=== PATIENT | female | born 1950 | race Two or more races ===

== ENCOUNTER 2018-04-30 18:56 | Inpatient (IN) | payer OTHER ==
--- NOTE | 2018-04-30 19:18 | PDOC ---
Rapid Medical Evaluation Time Seen by Provider: 04/30/18 19:13 Medical Evaluation: I have performed a brief in-person evaluation of this patient. The patient presents with a chief complaint of: neck pain since this morning. cannot turn neck without pain. patient had a fever last week but it resolved 5 days ago. Patient was sent here from [facility] for possible meningitis Pertinent physical exam findings: TTP of b/l cervical paravertebral muscles. I have ordered the following: labs The patient will proceed to the ED for further evaluation. Discharge Disposition - Diagnosis Neck pain - Referrals - Patient Instructions - Post Discharge Activity
--- NOTE | 2018-04-30 20:15 | PDOC ---
History of Present Illness - General Chief Complaint: Pain Stated Complaint: NECK PAIN Time Seen by Provider: 04/30/18 19:13 History Source: Patient Exam Limitations: No Limitations - History of Present Illness Initial Comments: 04/30/18 20:10 Pt is a 67yo f with no significant PMH sent to ED from [facility] for neck pain. Pt said the neck pain started last night and got worse throughout the day today. She is unable to move her neck without pain. Pt states that last week she was sick with "strep throat" which was worse than her previous sore throat illnesses and had a temperature of 103.2. She did not go to her doctor. She waited out the fever and was better 4 days ago on Sunday. Pt had "cold sores " erupt but they are gone now. She has not gotten flu shots and thinks she is up to date on vaccinations. Neck pain is localized to the back of the neck and radiates laterally. Not associated with headaches, photophobia, changes in vision, chest pain, sob, cough, ear pain, throat pain, congestion, abdominal pain, n/v/d, urinary symptoms. PCP: Gwendolyn PMH: none PSH: gastric bypass 2006 Meds: none Allergies: sulfa Social: denies Past History - Past Medical History Allergies/Adverse Reactions: Allergies Allergy/AdvReac Type Severity Reaction Status Date / Time Sulfa (Sulfonamide Allergy Severe Hives Verified 04/30/18 19:19 Antibiotics) Home Medications: Ambulatory Orders NK [No Known Home Medication] 04/30/18 COPD: No Other medical history: Pt denies - Suicide/Smoking/Psychosocial Hx Smoking History: Never smoked Have you smoked in the past 12 months: No Information on smoking cessation initiated: No Hx Alcohol Use: No Drug/Substance Use Hx: No Substance Use Type: None Review of Systems - Review of Systems Able to Perform ROS?: Yes Comments:: 05/01/18 00:04 ROS: Constitutional: Fevers. No chills, fatigue, malaise, weight change, night sweats HEENT: Neck pain and stiffness. No Headache Rhinorrhea, nasal congestion, visual changes, earache, sore throat Cardiovascular: No chest pain, syncope, palpitations, lightheadedness Respiratory: No Cough, SOB, Hemoptysis Gastrointestinal: No Abdominal pain, Nausea, Vomiting, Constipation, Diarrhea, blood in stool Genitourinary: No Dysuria, Frequency, Hematuria Musculoskeletal: Neck pain. No Myalgia, other arthralgias Skin: No rashes Neurologic: No Headache, Dizziness, Numbness, Weakness, or Tingling *Physical Exam - Vital Signs Last Vital Signs Temp Pulse Resp BP Pulse Ox 99.9 F H 85 20 192/88 H 100 04/30/18 19:19 04/30/18 19:19 04/30/18 19:19 04/30/18 19:19 04/30/18 19:19 - Physical Exam Comments: 05/01/18 00:08 Physical Exam: Pt sitting in bed with mask, not moving head. General Appearance: Nourished. No Apparent Distress HEENT: Atraumatic, normocephalic, EOMI, VASILE, Normal Tympanic Membranes. No Conjunctival Injection, Scleral Icterus, Pharyngeal Erythema, Tonsillar Exudate, Tonsillar Erythema. Neck: Tender to palpation along cervical spinous processes and paravertebral tenderness. No Cervical Lymphadenopathy, No tracheal deviation, Thyroid gland normal. Respiratory/Chest: Lungs Clear, Normal Breath Sounds. No Crackles, Rales, Rhonchi, Wheezing Cardiovascular: Regular Rhythm, Regular Rate, Peripheral pulses palpable bilaterally. No JVD, Murmur, Gallops, Rubs, Carotid Bruit, Edema Gastrointestinal/Abdominal: Normal Bowel Sounds, Soft. No Guarding, Rebound, Tenderness Musculoskeletal: Unable to rotate, flex or extend neck. No CVA Tenderness, No joint swelling Extremity: Normal Capillary Refill Integumentary: Normal Color, Dry, Warm. No rashes, lesions Neurologic: fringe knotter II-XII NML intact, Fully Oriented, Alert, Normal Mood/Affect, Normal Response, Motor Strength 5/5, Full sensation, 2+ Reflexes Procedures - Lumbar Puncture Indication: Meningitis CT Scan: No Betadine Prep: No Position: Right lateral decubitus Site: L4-L51 Volume(ml): 5 Lumbar Puncture Kit: Adult Opening Pressure(mmHg): 15 Traumatic Tap: No Tubes Obtained: 4 Clear Fluid: Yes Complications: Headache ED Treatment Course - LABORATORY CBC & Chemistry Diagram: 04/30/18 20:26 04/30/18 20:26 Medical Decision Making - Medical Decision Making 05/01/18 00:11 67yo F with no significant PMH BIBA from [facility] for neck stiffness. Pt had a fever last week that lasted for about 3-4 days with sore throat and cold sores. She is febrile today and has neck stiffness. No headache , photophobia. Negative Brudzinsky and Kernig's. No recent trauma. Vitals: 99 when presenting, 101.2 rectally. hypertensive, normocardic, saturating well on RA. PE: posterior neck tenderness and stiffness, pt unable to move neck DDx: meningitis, epidural abscess, influenza, Partial sepsis workup ordered, EKG, CXR. Will do LP and start pt on abx. Will give Tylenol for fever and pain. CT cspine and tspine ordered. Flu swab ordered Pt consented to LP. LP performed by me with supervision of Dr. Sorto and Dr. Read. No complications during procedure, CSF clear, pt did not complain of pain or neurological complaints. Pt complained of headache after procedure. Pt was started on Vancomycin, Ampicillin and Ceftriaxone and given dexamethasone prior to administration of abx. Pt also given ivf and Tylenol. Pt reported feeling better after tylenol. CXR: no focal densities, no acute pathology Labs: WBC 11.8, electrolytes wnl. UA negative CSF: 1 WBC, 1RBC in tube 1, 8 RBC in tube 4, 50 protein, 53 glucose. Flu swab negative. CSF, blood and urine cultures pending. 05/01/18 00:51 CT head: The ventricular system is midline and nondilated. The sulcal pattern is normal for the patient's age. There is no bleed, mass, extra-axial fluid collection or mass effect. No skull fracture or skull lesion is identified. The visualized paranasal sinuses and mastoid air cells are clear. 05/01/18 01:16 CT spine results pending. Pt will be admitted for poss. meningitis *DC/Admit/Observation/Transfer Diagnosis at time of Disposition: Neck pain - Discharge Dispostion Condition at time of disposition: Stable Decision to Admit order: Yes - Referrals - Patient Instructions - Post Discharge Activity
[2018-04-30 20:44] LABS: VENOUS PC02 39.4 mmHg (38-52); VENOUS PH 7.43 (7.32-7.42); VENOUS PO2 37.2 mmHg (28-48)
--- NOTE | 2018-04-30 21:06 | PDOC ---
Attending Attestation - Resident Resident Name: Julisa Finch - ED Attending Attestation I have performed the following: I have examined & evaluated the patient, The case was reviewed & discussed with the resident, I agree w/resident's findings & plan, Exceptions are as noted - HPI HPI: 04/30/18 23:02 Patient is a 67 y/o F with no past medical history who presents to the emergency department for evaluation of neck pain. Patient was advised to visit the emergency department for further evaluation after being seen at [facility] for neck pain. Pt reports neck stiffness and pain with flexion and extension of her neck. She reports a Tmax of 103.2 last week with an associated sore throat that has resolved over the last few days, but began having fevers again today. She also reports photophobia. The patient denies nausea, chest pain, back pain, headache, urinary symptoms, weakness, or focal deficits - Physicial Exam PE: 04/30/18 23:05 GENERAL: Awake, alert, and fully oriented, in no acute distress HEAD: No signs of trauma EYES: PERRLA, EOMI, sclera anicteric, conjunctiva clear ENT: Auricles normal inspection, hearing grossly normal, nares patent, oropharynx clear without exudates. Moist mucosa NECK: +pain with flexion of the neck. +midline cervical ttp LUNGS: Breath sounds equal, clear to auscultation bilaterally. No wheezes, and no crackles HEART: Regular rate and rhythm, normal S1 and S2, no murmurs, rubs or gallops ABDOMEN: Soft, nontender, normoactive bowel sounds. No guarding, no rebound. No masses EXTREMITIES: Normal range of motion, no edema. No clubbing or cyanosis. No cords , erythema, or tenderness BACK: No midline spinal tenderness in thoracic/lumbar region NEUROLOGICAL: Normal speech, cranial nerves intact, negative pronator drift, 5/ 5 strength in all 4 extremities, normal sensation to light touch in all 4 extremities, normal cerebellar exam, normal gait, normal reflexes and tone SKIN: Warm, Dry, normal turgor, no rashes or lesions noted. - Medical Decision Making 04/30/18 23:06 67yo F presents to the ED with neck pain and fever. Vitals with fever and elevated BP. Story c/f meningitis vs epidural abscess vs viral syndrome. LP done and pending. WIll do sepsis workup, cover pt for meningitis and admit. 05/01/18 00:50 CTH neg, CT cervical and thoracic spine pending to eval for epidural abscess. If neg, pt will need MRI for further eval. Case signed out to admitting hosp. Case discussed in detail with admitting physician including history, physical exam and ancillary studies. Admitting physician has assumed care for the patient, will follow all pending diagnostics and will complete the evaluation and treatment. Heart Score/ECG Review #1 05/01/18 00:22 Twelve-lead EKG was performed and reviewed by me. Normal sinus rhythm, rate 79. Normal axis and intervals. No ST elevations or T-wave inversions.
[2018-04-30 21:13] LABS: BASO % 0.5 % (0-2.0); EOS % 0.4 % (0-4.5); HEMATOCRIT 36.4 % (32.4-45.2); HEMOGLOBIN 11.4 GM/dL (10.7-15.3); LYMPH % 12.9 % (8-40); MCHC 31.4 g/dl (32.0-36.0); MEAN CELL VOLUME 76.4 fl (80-96); MEAN PLT VOLUME 8.1 fl (7.5-11.1); MONO % 6.6 % (3.8-10.2); NEUT % 79.6 % (42.8-82.8); PLATELET COUNT 443 K/MM3 (134-434); RBC 4.76 M/mm3 (3.60-5.2); RDW 18.4 % (11.6-15.6); WHITE BLOOD COUNT 11.8 K/mm3 (4.0-10.0)
[2018-04-30 21:17] LABS: URINE APPEARANCE SLCLOUDY; URINE BILIRUBIN NEGATIVE (<2.0 mg/dL); URINE COLOR YELLOW; URINE GLUCOSE (UA) NEGATIVE (NEGATIVE); URINE KETONE 2+ (NEGATIVE); URINE LEUK ESTERASE TRACE (NEGATIVE); URINE NITRITE NEGATIVE (NEGATIVE); URINE PROTEIN NEGATIVE (NEGATIVE)
[2018-04-30 21:28] LABS: EPI CELLS RARE /HPF (FEW); URINE HYALINE CAST 1 /lpf
[2018-04-30 21:31] LABS: INR 1.14 (0.83-1.09); PROTHROMBIN TIME (PATIENT) 13.5 SEC (9.7-13.0)
[2018-04-30 21:34] LABS: ACTIVATED PTT 27.6 SECONDS (25.2-36.5)
[2018-04-30 21:36] LABS: ALBUMIN 3.6 g/dl (3.4-5.0); ALK PHOS 60 U/L (45-117); ANION GAP 8 MMOL/L (8-16); BILIRUBIN,TOTAL 0.3 mg/dL (0.2-1); BLOOD UREA NITROGEN 13 mg/dL (7-18); CALCIUM 8.7 mg/dL (8.5-10.1); CHLORIDE 104 mmol/L (98-107); CO2 25 mmol/L (21-32); CREATININE 0.8 mg/dL (0.55-1.3); GLUCOSE,RANDOM 89 mg/dL (74-106); POTASSIUM 3.9 mmol/L (3.5-5.1); SGOT/AST 20 U/L (15-37); SGPT/ALT 19 U/L (13-61); SODIUM 137 mmol/L (136-145); TOT PROT 7.6 g/dl (6.4-8.2)
[2018-04-30] MEDS ORDERED: ACETAMINOPHEN 1000 MG/100 ML VIAL (NON FORMULARY) IVPB ONE (22:21)
[2018-04-30] MEDS ORDERED: SODIUM CHLORIDE 1,000 ML IV STA (22:22)
[2018-04-30] MEDS ORDERED: ACETAMINOPHEN INJECTION 100 ML IVPB ONE (22:38)
[2018-04-30 22:42] LABS: GLUCOSE,CSF 53 mg/dL (40-70)
[2018-04-30] MEDS ORDERED: CEFTRIAXONE 2,000 MG in DEXTROSE 5%-WATER - 50 ML IVPB ONE (23:02)
[2018-04-30] MEDS ORDERED: AMPICILLIN SODIUM 250 MG VIAL IVPUSH ONE (23:02)
[2018-04-30] MEDS ORDERED: DEXAMETHASONE SOD PHOSPHATE 20 MG/5 ML VIAL IVPB ONE (23:02)
[2018-04-30] MEDS ORDERED: VANCOMYCIN 500 MG in DEXTROSE 5%-WATER - 100 ML IVPB ONE (23:07)
[2018-04-30 23:09] LABS: CSF APPEARANCE CLEAR; CSF COLOR COLORLESS; CSF WBC 1
[2018-04-30 23:12] LABS: CSF APPEARANCE CLEAR; CSF COLOR COLORLESS; CSF WBC 1
[2018-04-30] MEDS ORDERED: VANCOMYCIN 1,000 MG in DEXTROSE 5%-WATER - 100 ML IVPB ONE (23:18)
[2018-04-30] MEDS ORDERED: CEFTRIAXONE 2 GM/100 ML BAG IVPB ONE (23:23)
[2018-04-30] MEDS ORDERED: VANCOMYCIN 1 GRAM (PRE-DOCKED) 1,000 MG/250 ML BAG IVPB ONE (23:23)
[2018-04-30] MEDS ORDERED: AMPICILLIN SODIUM 2 GM VIAL ONE (23:23)
[2018-04-30] MEDS ORDERED: DEXAMETHASONE SOD PHOSPHATE 10 MG/1 ML VIAL ONE (23:23)
--- NOTE | 2018-05-01 02:28 | PN ---
Teaching Attending Note Name of Resident: Kamilla Queen ATTENDING PHYSICIAN STATEMENT I saw and evaluated the patient. I reviewed the resident's note and discussed the case with the resident. I agree with the resident's findings and plan as documented. SUBJECTIVE: Patient is a 67 year old woman with history of Migraines and Gastric bypass ( 2006) sent to the ER from [facility] for neck pain. The neck pain started last night and got worse throughout the day today. She is unable to move her neck without pain. Last week she was sick with "strep throat" which was worse than her previous sore throat illnesses and she had a temperature of 103.2. She did not go to her doctor. She waited out the fever and was better 4 days ago on Sunday. She had "cold sores" eruptions but they are gone now. She has not gotten flu shots and thinks she is up to date on vaccinations. Neck pain is localized to the back of the neck and radiates laterally. Not associated with headaches, photophobia, changes in vision, chest pain, sob, cough, ear pain, throat pain, congestion, abdominal pain, nausea or vomiting. OBJECTIVE: Alert Vital Signs Period Temp Pulse Resp BP Sys/Marquez Pulse Ox Last 24 Hr 98.9 F-101.2 F 77-85 18-20 165-192/88-93 99-100 HEENT: No Jaundice, eye redness or discharge, PERRLA, EOMI. Normocephalic, atraumatic. Poor dentition. External ears are normal and hearing is grossly intact. No nasal discharge. Neck: Supple, paravertebral tenderness. No palpable adenopathy or thyromegaly. No JVD Chest: Good effort. Clear to auscultation and percussion. Heart: Regular. No S3, rub or murmur Abdomen: Not distended, soft, nontender and no HSM. No rebound or guarding. Normoactive bowel sounds. Ext: Peripheral pulses intact. No leg edema. Skin: Warm and dry. No petechiae, rash or ecchymosis. Neuro: Alert. Oriented x3. CN 2-12 grossly intact. Sensation grossly intact in all four extremities and DTR are symmetric. Home Medications Medication Instructions Recorded NK [No Known Home Medication] 04/30/18 Abnormal Lab Results 04/30/18 04/30/18 04/30/18 20:25 20:26 20:26 WBC 11.8 H MCV 76.4 L MCH 24.0 L MCHC 31.4 L RDW 18.4 H Plt Count 443 H Absolute Neuts (auto) 9.4 H PT with INR 13.50 H INR 1.14 H VBG pH 7.43 H Mixed VBG HCO3 25.6 H Urine Ketones Urine Urobilinogen CSF Total Protein 04/30/18 04/30/18 20:45 21:51 WBC MCV MCH MCHC RDW Plt Count Absolute Neuts (auto) PT with INR INR VBG pH Mixed VBG HCO3 Urine Ketones 2+ H Urine Urobilinogen 2.0 H CSF Total Protein 50 H ASSESSMENT AND PLAN: 1. Meningitis - Started on empiric antibiotics (vancomycin, ampicillin and rocephin) pending spinal fluid analysis. Pain likely musculoskeletal due to local factors. Uncontrolled hypertension and migraines may explain neck pain. Will treat hypertension, restrict dietary salt intake and use imitrex for migraine. Neck CT result pending. Will get C-spine MRI, Lyme studies and consult neurology and ID. 2. DVT prophylaxis - Lovenox 40 mg SQ q 24 hours. 3. Advance directives - Full code
--- NOTE | 2018-05-01 04:23 | HP ---
CHIEF COMPLAINT: neck pain PCP: Dr. Dumont HISTORY OF PRESENT ILLNESS: 67F w/ pmhx of migraines presents to the ED w/ a 2 day history of neck pain. She states that her symptoms started when she woke up this past Sunday in the morning, but had gotten significantly worse the following day. On Sunday morning, she had significant neck pain but proceeded to go to work. She states she took Advil liquid gels in the morning and afternoon for the pain. Pt reports that she can only minimally rotate, flex, and extend her neck. Of note, pt states that she had a 4 day history of "strep throat" last week with a fever of 103.2. Her symptoms of neck pain began abruptly shortly have recovering from her sickness. She says she has never had this neck pain before. Denies headache, dizziness, sob, problems with balance, vision/hearing changes, n/v, urinary/bowel symptoms. ER course was notable for: (1) BP 165/93, WBC 11.8, T 101.2 (2) Empiric Ampicillin, Ceftriaxone, Vancomycin given; Decadron also given (3) blood/urine/CSF cultures ordered; Head/Cervical/Thoracic CT ordered, bacterial meningitis Ag, EBV/HSV/Lyme pending Recent Travel: Denies recent travel PAST MEDICAL HISTORY: migraines since last year PAST SURGICAL HISTORY: gastric bypass surgery (2006) Social History: Smoking: Denies Alcohol: socially drinks 1-2 glasses every weekend Drugs: Denies Family History: Mother: of [place] 33 years ago, HTN Father: in 1999; had HTN Daughter: has cancer (Pt is unsure what kind) Son: recently diagnosed with schizophrenia Allergies Sulfa (Sulfonamide Antibiotics) Allergy (Severe, Verified 04/30/18 19:19) Hives HOME MEDICATIONS: Home Medications Medication Instructions Recorded NK [No Known Home Medication] 04/30/18 REVIEW OF SYSTEMS CONSTITUTIONAL: Denies fever, chills, diaphoresis, generalized weakness, malaise , loss of appetite, weight change HEENT: Denies rhinorrhea, nasal congestion, ear pain, eye pain, visual changes CARDIOVASCULAR: Denies chest pain, syncope, palpitations, irregular heart rate, lightheadedness, peripheral edema RESPIRATORY: Denies cough, sob, dyspnea with exertion, orthopnea, wheezing, stridor, hemoptysis GASTROINTESTINAL: Denies abdominal pain, abdominal distension, nausea, vomiting , diarrhea, constipation, melena, hematochezia GENITOURINARY: Denies dysuria, frequency, urgency, hesitancy, hematuria, flank pain, genital pain MUSCULOSKELETAL: +neck pain; denies arthralgia, joint swelling, back pain, neck pain HEMATOLOGIC/IMMUNOLOGIC: Denies easy bleeding, easy bruising, lymphadenopathy ENDOCRINE: Denies unexplained weight gain, unexplained weight loss, heat intolerance, cold intolerance NEUROLOGIC: Denies headache, focal weakness or paresthesias, dizziness, unsteady gait, seizure, mental status changes, bladder or bowel incontinence PSYCHIATRIC: Denies anxiety, depression, suicidal or homicidal ideation, hallucinations. PHYSICAL EXAMINATION Vital Signs - 24 hr 04/30/18 04/30/18 05/01/18 19:19 20:20 02:10 Temperature 99.9 F H 101.2 F H 98.9 F Pulse Rate 85 Pulse Rate [ 77 Apical] Respiratory 20 18 Rate Blood Pressure 192/88 H Blood Pressure 165/93 [Left Arm] O2 Sat by Pulse 100 99 Oximetry (%) GENERAL: AAOx3. NAD. Resting comfortably. HEENT: AT/NC. EOMI. DEEPTI. Moist mucus membranes. Poor dentition. NECK: +point tenderness at base of occiput, +neck stiffness/tenderness, no LAD/ JVD. LUNGS: CTA B/L. No w/r/r noted. Symmetric chest rise. No accessory muscle use. HEART: RRR. Normal S1, S2. No murmurs noted. ABDOMEN: Obese. Soft, NT/ND. +BS in all 4 Q's. No masses or bruits noted. MUSCULOSKELETAL: No pedal edema. 5/5 muscle strength in b/l u/l extremities. NEUROLOGICAL: Normal speech. (-)Kernig sign, (-)Brudzinkski sign PSYCHIATRIC: Cooperative. Good eye contact. Appropriate mood and affect. SKIN: Warm, dry, normal turgor, normal capillary refill. Laboratory Results - last 24 hr 04/30/18 04/30/18 04/30/18 20:25 20:25 20:26 WBC 11.8 H RBC 4.76 Hgb 11.4 Hct 36.4 MCV 76.4 L MCH 24.0 L MCHC 31.4 L RDW 18.4 H Plt Count 443 H MPV 8.1 Absolute Neuts (auto) 9.4 H Neutrophils % 79.6 Lymphocytes % 12.9 Monocytes % 6.6 Eosinophils % 0.4 Basophils % 0.5 Nucleated RBC % 0 PT with INR INR PTT (Actin FS) VBG pH 7.43 H POC VBG pCO2 39.4 POC VBG pO2 37.2 Mixed VBG HCO3 25.6 H Sodium Potassium Chloride Carbon Dioxide Anion Gap BUN Creatinine Creat Clearance w eGFR Random Glucose Lactic Acid 1.0 Calcium Total Bilirubin AST ALT Alkaline Phosphatase Troponin I Total Protein Albumin Urine Color Urine Appearance Urine pH Ur Specific [place] Urine Protein Urine Glucose (UA) Urine Ketones Urine Blood Urine Nitrite Urine Bilirubin Urine Urobilinogen Ur Leukocyte Esterase Urine WBC (Auto) Urine RBC (Auto) Ur Epithelial Cells Hyaline Casts CSF Appearance CSF Color CSF WBC CSF RBC CSF Neutrophils CSF Lymphocytes CSF Eosinophils CSF Basophils CSF Macrophages CSF Plasma Cells CSF Diff Comment CSF Comment CSF Glucose CSF Total Protein 04/30/18 04/30/18 04/30/18 20:26 20:26 20:26 WBC RBC Hgb Hct MCV MCH MCHC RDW Plt Count MPV Absolute Neuts (auto) Neutrophils % Lymphocytes % Monocytes % Eosinophils % Basophils % Nucleated RBC % PT with INR 13.50 H INR 1.14 H PTT (Actin FS) 27.6 VBG pH POC VBG pCO2 POC VBG pO2 Mixed VBG HCO3 Sodium 137 Potassium 3.9 Chloride 104 Carbon Dioxide 25 Anion Gap 8 BUN 13 Creatinine 0.8 Creat Clearance w eGFR > 60 Random Glucose 89 Lactic Acid Calcium 8.7 Total Bilirubin 0.3 AST 20 ALT 19 Alkaline Phosphatase 60 Troponin I < 0.02 Total Protein 7.6 Albumin 3.6 Urine Color Urine Appearance Urine pH Ur Specific [place] Urine Protein Urine Glucose (UA) Urine Ketones Urine Blood Urine Nitrite Urine Bilirubin Urine Urobilinogen Ur Leukocyte Esterase Urine WBC (Auto) Urine RBC (Auto) Ur Epithelial Cells Hyaline Casts CSF Appearance CSF Color CSF WBC CSF RBC CSF Neutrophils CSF Lymphocytes CSF Eosinophils CSF Basophils CSF Macrophages CSF Plasma Cells CSF Diff Comment CSF Comment CSF Glucose CSF Total Protein 04/30/18 04/30/18 04/30/18 20:45 21:51 21:51 WBC RBC Hgb Hct MCV MCH MCHC RDW Plt Count MPV Absolute Neuts (auto) Neutrophils % Lymphocytes % Monocytes % Eosinophils % Basophils % Nucleated RBC % PT with INR INR PTT (Actin FS) VBG pH POC VBG pCO2 POC VBG pO2 Mixed VBG HCO3 Sodium Potassium Chloride Carbon Dioxide Anion Gap BUN Creatinine Creat Clearance w eGFR Random Glucose Lactic Acid Calcium Total Bilirubin AST ALT Alkaline Phosphatase Troponin I Total Protein Albumin Urine Color Yellow Urine Appearance Slcloudy Urine pH 7.0 Ur Specific [place] 1.015 Urine Protein Negative Urine Glucose (UA) Negative Urine Ketones 2+ H Urine Blood Negative Urine Nitrite Negative Urine Bilirubin Negative Urine Urobilinogen 2.0 H Ur Leukocyte Esterase Trace Urine WBC (Auto) 6 Urine RBC (Auto) 4 Ur Epithelial Cells Rare Hyaline Casts 1 CSF Appearance Clear CSF Color Colorless CSF WBC 1 CSF RBC 8 CSF Neutrophils No Result Required. CSF Lymphocytes No Result Required. CSF Eosinophils No Result Required. CSF Basophils No Result Required. CSF Macrophages No Result Required. CSF Plasma Cells No Result Required. CSF Diff Comment No Result Required. CSF Comment No Result Required. CSF Glucose No Result Required. 53 CSF Total Protein No Result Required. 50 H 04/30/18 21:51 WBC RBC Hgb Hct MCV MCH MCHC RDW Plt Count MPV Absolute Neuts (auto) Neutrophils % Lymphocytes % Monocytes % Eosinophils % Basophils % Nucleated RBC % PT with INR INR PTT (Actin FS) VBG pH POC VBG pCO2 POC VBG pO2 Mixed VBG HCO3 Sodium Potassium Chloride Carbon Dioxide Anion Gap BUN Creatinine Creat Clearance w eGFR Random Glucose Lactic Acid Calcium Total Bilirubin AST ALT Alkaline Phosphatase Troponin I Total Protein Albumin Urine Color Urine Appearance Urine pH Ur Specific [place] Urine Protein Urine Glucose (UA) Urine Ketones Urine Blood Urine Nitrite Urine Bilirubin Urine Urobilinogen Ur Leukocyte Esterase Urine WBC (Auto) Urine RBC (Auto) Ur Epithelial Cells Hyaline Casts CSF Appearance Clear CSF Color Colorless CSF WBC 1 CSF RBC 1 CSF Neutrophils No Result Required. CSF Lymphocytes No Result Required. CSF Eosinophils No Result Required. CSF Basophils No Result Required. CSF Macrophages No Result Required. CSF Plasma Cells No Result Required. CSF Diff Comment No Result Required. CSF Comment No Result Required. CSF Glucose No Result Required. CSF Total Protein No Result Required. ASSESSMENT/PLAN: 67F w/ pmhx of migraines presents to the ED w/ a 2 day history of neck pain admitted for meningitis. #? Meningitis; WBC 11.8. Temp 101.2. Pt is being treated empirically for meningitis until CSF fluid analysis report is final. Given pt's current clinical state, however, neck pain may likely be a musculoskeletal issue. -empiric antibiotics given: Ampicillin 2000 mg IVP, Ceftriaxone 2000 mg, Vanc 1500 mg given; cont empiric coverage -CSF analysis pending; including EBV/HSV/Lyme/Strep pneumo -Blood/urine/CSF culture ordered -Bacterial Men Ag ordered -ID consult ordered -Tylenol 650 mg PO Q4H for pain -Head/Cervical/Thoracic CT spine ordered -Consider MRI spine for further eval if head CT is neg #HTN; Initial BP 165/93. Uncontrolled. -Lisinopril 10 mg PO QD -HCTZ 12.5 mg PO BID -Pt needs outpatient follow up #DVT Ppx -Lovenox 40 mg SQ QD #FEN -no IVf -recheck lytes in AM -sodium controlled diet dispo -admit to med-surg Visit type - Emergency Visit Emergency Visit: Yes ED Registration Date: 05/01/18 Care time: The patient presented to the Emergency Department on the above date and was hospitalized for further evaluation of their emergent condition. - New Patient This patient is new to me today: Yes Date on this admission: 05/01/18 - Critical Care Critical Care patient: No
[2018-05-01] MEDS ORDERED: LISINOPRIL 10 MG TABLET (FP) PO ONE (05:15)
[2018-05-01] MEDS ORDERED: LISINOPRIL 20 MG TABLET (FP) ONE (05:41)
[2018-05-01 06:44] LABS: BASO % 0.3 % (0-2.0); HEMOGLOBIN 11.4 GM/dL (10.7-15.3); LYMPH % 8.7 % (8-40); MCH 23.7 pg (25.7-33.7); MCHC 31.6 g/dl (32.0-36.0); MEAN CELL VOLUME 75.1 fl (80-96); MEAN PLT VOLUME 7.7 fl (7.5-11.1); PLATELET COUNT 396 K/MM3 (134-434); RDW 18.5 % (11.6-15.6); WHITE BLOOD COUNT 10.8 K/mm3 (4.0-10.0)
[2018-05-01 07:03] LABS: ALBUMIN 3.3 g/dl (3.4-5.0); ALK PHOS 60 U/L (45-117); ANION GAP 8 MMOL/L (8-16); BILIRUBIN,TOTAL 0.4 mg/dL (0.2-1); BLOOD UREA NITROGEN 10 mg/dL (7-18); CALCIUM 8.8 mg/dL (8.5-10.1); CHLORIDE 105 mmol/L (98-107); CO2 26 mmol/L (21-32); CREATININE 0.8 mg/dL (0.55-1.3); GLUCOSE,RANDOM 168 mg/dL (74-106); POTASSIUM 4.2 mmol/L (3.5-5.1); SGOT/AST 22 U/L (15-37); SGPT/ALT 17 U/L (13-61); SODIUM 138 mmol/L (136-145); TOT PROT 7.5 g/dl (6.4-8.2)
[2018-05-01] MEDS ORDERED: ACYCLOVIR INJECTION 600 MG in DEXTROSE 5%-WATER - 100 ML IVPB ONE (09:55)
[2018-05-01] MEDS ORDERED: LISINOPRIL 10 MG TABLET (FP) PO SCH (10:00)
[2018-05-01] MEDS ORDERED: SODIUM CHLORIDE 1,000 ML IV SCH (10:00)
[2018-05-01] MEDS ORDERED: HYDROCHLOROTHIAZIDE 12.5 MG CAPSULE (FP) PO SCH (10:00)
[2018-05-01] MEDS: SODIUM CHLORIDE 1,000 ML IV SCH (11:06)
--- NOTE | 2018-05-01 11:31 | PN ---
Progress Note (short form) - Note Progress Note: ID Consult dictated Neck pain ? musculoskeletal CSF not c/w meningitis Fever, R/O strep throat Orolabial HSV Await c/s Empiric ceftriaxone Valtrex
--- NOTE | 2018-05-01 11:56 | EKG ---
Test Reason : Blood Pressure : / mmHG Vent. Rate : 079 BPM Atrial Rate : 079 BPM P-R Int : 142 ms QRS Dur : 084 ms QT Int : 362 ms P-R-T Axes : 032 008 026 degrees QTc Int : 415 ms POOR DATA QUALITY, INTERPRETATION MAY BE ADVERSELY AFFECTED NORMAL SINUS RHYTHM NORMAL ECG NO PREVIOUS ECGS AVAILABLE Confirmed by ROXANNE AGEE MD ([id number]) on 05/01/2018 11:55:31 AM Referred By: Confirmed By:ROXANNE AGEE MD
[2018-05-01] MEDS ORDERED: valACYclovir HCL 1000 MG TABLET PO SCH (12:00)
--- NOTE | 2018-05-01 12:01 | CONS ---
DATE OF CONSULTATION: DATE OF DICTATION: 05/01/2018 The patient is a 67-year-old female who is evaluated for fever. The patient states that she was well until Saturday, April 21, 2018. She developed high-grade fever to 102. She did not seek medical attention. She self medicated with aspirin and Tylenol with resolution of the febrile illness. She was well until April 29, when she began to develop soreness in her neck. It became progressively worse. She had presented to her primary care physician and was referred to the emergency room for possible meningitis. A spinal tap was performed in the emergency room. The spinal fluid showed 1 white cell, 1 red cell, glucose 53, protein 50. Gram stain is pending. She was empirically treated with vancomycin, ceftriaxone, ampicillin and dexamethasone. At the present time she is awake and alert. There have been no reports of any altered mental status or obtundation. No photophobia. No neck stiffness. CAT scan of the neck was done and is pending. She denies any ill contacts. She denies any recent tick or mosquito bites. No recent travel. No rash reported. Her HIV status is not known, but she denies risk factors and declines testing. PAST MEDICAL HISTORY: Positive for migraines. PAST SURGICAL HISTORY: Status post gastric bypass, 2006. ALLERGIES: SULFA (hives) SOCIAL HISTORY: She works in the [employer]. She does maintenance work. She denies any ill contacts. Denies tobacco, alcohol or illicit drugs. SYSTEMS REVIEW:Neurologic: No loss of consciousness, seizure activity, focal weakness. Cardiac: Negative chest pain or palpitations. Respiratory: Negative cough or sputum production. Gastrointestinal: Negative vomiting or diarrhea. Genitourinary: Negative for urinary tract infection. LABORATORY DATA: White count 10.8, 90% neutrophils, 8 lymphocytes, 1 monocyte, hematocrit 36.0, platelet count 396. Creatinine 0.8. Chest x-ray: Negative, no acute pathology. Urinalysis: White cells 6. Liver enzymes normal. PHYSICAL EXAMINATION:General: She is awake and alert. She is not acutely toxic appearing, in no acute distress. Vital Signs: T-max 101.2, blood pressure 170/93, pulse 68, regular, respirations 17 per minute. HEENT: Sclerae are anicteric. Poor dentition. Positive herpes simplex on the upper and lower lips. No thrush. Neck: Supple. There is some tenderness posteriorly with flexion. Cardiac: Heart sounds S1, S2. Lungs: Clear. Abdomen: Soft, no tenderness elicited, no mass, rebound or rigidity. Extremities: Negative for edema. No rash is noted. IMPRESSION: 1. Neck pain, likely musculoskeletal. 2. Spinal fluid analysis not consistent with meningitis. 3. Fever, recent sore throat, rule out Streptococcal pharyngitis. 4. Orolabial herpes simplex. RECOMMENDATIONS: Await the throat and blood culture results. Throat culture has been obtained. Flu swab is negative. Continue empiric ceftriaxone 2 g IV piggyback daily. Valtrex 1 g p.o. every 12 hours for her orolabial herpes simplex. Patient declines HIV testing. No isolation required. Thank you for the kind referral. KEL LEMUS M.D. [id number]
[2018-05-01] MEDS: ENOXAPARIN NA (PORCINE) 40 MG/0.4 ML DISP.SYRIN SQ SCH (13:51)
[2018-05-01] MEDS: CEFTRIAXONE 2 GM in DEXTROSE 5%-WATER 100 ML IVPB SCH (13:51)
[2018-05-01] MEDS: amLODIPine BESYLATE 10 MG TABLET (FP) PO SCH (13:51)
--- NOTE | 2018-05-01 16:01 | PN ---
Teaching Attending Note Name of Resident: Sylvia Vivar ATTENDING PHYSICIAN STATEMENT I saw and evaluated the patient. I reviewed the resident's note and discussed the case with the resident. I agree with the resident's findings and plan as documented. SUBJECTIVE: seen earlier this am feels better . cont to have neck pain. with radiation to occipital area. she reports severe throat pain 7 days ago with fever that lasted 4 days .also reports vesicles around her face last week . fever subsided , but then returned 2 days ago with neck pain. she usually has SCHULTZ that she calls migraines ( never diagnosed by MD) x 1 year. Happens 1-2 times a month. has no visual changes, no photophobia, no weakness, numbness or tingling. OBJECTIVE: NAD , no LAP in neck . crusted lesions on upper and lower lips . neck stiffness. TTP over C3-C4. oropharynx with erythematous tonsils but not enlarged and no exudate CV: RRR Lungs: CATB ext : no edema Neuro : EOMI, round equal puipils reactive to light , no facail droop, uvula and tongue at mid line , strength 5/5 in upper and lower extremities proximally and distally. sensation to light touch BNl. reflexes 2+ knee jerk and biceps b/ l. ASSESSMENT AND PLAN: 67 y/o lady with h/o gastric bypass sx , and recurrent SCHULTZ who presented with severe neck pain and fever 1- Fever and neck pain. unclear etiology. CSF is not suggestive of bacterial meningitis. orolabial herpes lesions raises suspicion for HSV meningitis . she had severe sore throat a week ago, ? strep throat vs HSV . no paraspinal or parapharyngeal collections though has TTP over C3-C4 area - rapid strep test - follow blood cx - hold off IV acyclovir now after d/w ID - MRI of neck to r/o discitis /epidural abscess - follow CSF HSV and cx. 2- HTN urgency. norvasc 3- orolabial herpes po acyclovir DVT PX
[2018-05-01] MEDS ORDERED: ACETAMINOPHEN 325 MG TABLET (FP) ONE (19:46)
[2018-05-01] MEDS: ACETAMINOPHEN 325 MG TABLET (FP) PO PRN (19:50)
--- NOTE | 2018-05-01 20:44 | PN ---
Physical Exam: SUBJECTIVE: Patient seen and examined this morning at bedside. Patient woke up with neck pain that initially went from ear to ear but is now more midline, Sharp 6/10 currently, and does not radiate that started after her initial fevers broke. Recently had a vesicular rash localized to her upper lip, that has since resolved with vaseline. Recently lost 10lbs in the past 3 weeks after starting a OTC diet pill. Denies any recent medication changes. Has a hx of self-diagnosed migraines (no neurologist visits) that occur 1-2x a month, and cause her to remain in bed for 1 day. She need to be in a dark room to help relieve the symptoms. Denies any aura's in the past, no associated numbness or tingling, occur with no relation to menstruation. OBJECTIVE: Vital Signs Period Temp Pulse Resp BP Sys/Marquez Pulse Ox Last 24 Hr 97.6 F-101.2 F 65-77 17-18 133-170/61-93 99-100 GENERAL: A&Ox3, NAD HEAD: NCAT EYES: PERRL, EOMI ENT: Oropharynx clear without exudates, MMM, Poor dentition, No tonsilar enlargement NECK: No JVD, No Lymphadenopathy, No Carotid Bruit. ROM significantly limited patient says due to stiffness and pain. Tender to palpation in the midline, c3- c4 region. LUNGS: CTA bilaterally, no wheezes HEART: Regular rate and rhythm, S1, S2 without murmur ABDOMEN: Soft, nontender, nondistended, + bowel sounds, no guarding EXTREMITIES: 2+ pulses, no edema. NEUROLOGICAL: Cranial nerves II through XII grossly intact. Normal speech. C5- T1 and L4-S1 gross sensation intact throughout. 5/5 Muscle strength to handgrip , Elbow flexion/extension, Hip flexion/extension, dorsiflexion, platarflexion. SKIN: Warm, dry, Resolved vesicle over upper lip with minimal rash remaining, No other lesions noted Laboratory Results - last 24 hr 04/30/18 04/30/18 04/30/18 20:25 20:25 20:26 WBC 11.8 H RBC 4.76 Hgb 11.4 Hct 36.4 MCV 76.4 L MCH 24.0 L MCHC 31.4 L RDW 18.4 H Plt Count 443 H MPV 8.1 Absolute Neuts (auto) 9.4 H Neutrophils % 79.6 Lymphocytes % 12.9 Monocytes % 6.6 Eosinophils % 0.4 Basophils % 0.5 Nucleated RBC % 0 PT with INR INR PTT (Actin FS) VBG pH 7.43 H POC VBG pCO2 39.4 POC VBG pO2 37.2 Mixed VBG HCO3 25.6 H Sodium Potassium Chloride Carbon Dioxide Anion Gap BUN Creatinine Creat Clearance w eGFR Random Glucose Lactic Acid 1.0 Calcium Total Bilirubin AST ALT Alkaline Phosphatase Troponin I Total Protein Albumin Urine Color Urine Appearance Urine pH Ur Specific [place] Urine Protein Urine Glucose (UA) Urine Ketones Urine Blood Urine Nitrite Urine Bilirubin Urine Urobilinogen Ur Leukocyte Esterase Urine WBC (Auto) Urine RBC (Auto) Ur Epithelial Cells Hyaline Casts CSF Appearance CSF Color CSF WBC CSF RBC CSF Neutrophils CSF Lymphocytes CSF Eosinophils CSF Basophils CSF Macrophages CSF Plasma Cells CSF Diff Comment CSF Comment CSF Glucose CSF Total Protein 04/30/18 04/30/18 04/30/18 20:26 20:26 20:26 WBC RBC Hgb Hct MCV MCH MCHC RDW Plt Count MPV Absolute Neuts (auto) Neutrophils % Lymphocytes % Monocytes % Eosinophils % Basophils % Nucleated RBC % PT with INR 13.50 H INR 1.14 H PTT (Actin FS) 27.6 VBG pH POC VBG pCO2 POC VBG pO2 Mixed VBG HCO3 Sodium 137 Potassium 3.9 Chloride 104 Carbon Dioxide 25 Anion Gap 8 BUN 13 Creatinine 0.8 Creat Clearance w eGFR > 60 Random Glucose 89 Lactic Acid Calcium 8.7 Total Bilirubin 0.3 AST 20 ALT 19 Alkaline Phosphatase 60 Troponin I < 0.02 Total Protein 7.6 Albumin 3.6 Urine Color Urine Appearance Urine pH Ur Specific [place] Urine Protein Urine Glucose (UA) Urine Ketones Urine Blood Urine Nitrite Urine Bilirubin Urine Urobilinogen Ur Leukocyte Esterase Urine WBC (Auto) Urine RBC (Auto) Ur Epithelial Cells Hyaline Casts CSF Appearance CSF Color CSF WBC CSF RBC CSF Neutrophils CSF Lymphocytes CSF Eosinophils CSF Basophils CSF Macrophages CSF Plasma Cells CSF Diff Comment CSF Comment CSF Glucose CSF Total Protein 04/30/18 04/30/18 04/30/18 20:45 21:51 21:51 WBC RBC Hgb Hct MCV MCH MCHC RDW Plt Count MPV Absolute Neuts (auto) Neutrophils % Lymphocytes % Monocytes % Eosinophils % Basophils % Nucleated RBC % PT with INR INR PTT (Actin FS) VBG pH POC VBG pCO2 POC VBG pO2 Mixed VBG HCO3 Sodium Potassium Chloride Carbon Dioxide Anion Gap BUN Creatinine Creat Clearance w eGFR Random Glucose Lactic Acid Calcium Total Bilirubin AST ALT Alkaline Phosphatase Troponin I Total Protein Albumin Urine Color Yellow Urine Appearance Slcloudy Urine pH 7.0 Ur Specific [place] 1.015 Urine Protein Negative Urine Glucose (UA) Negative Urine Ketones 2+ H Urine Blood Negative Urine Nitrite Negative Urine Bilirubin Negative Urine Urobilinogen 2.0 H Ur Leukocyte Esterase Trace Urine WBC (Auto) 6 Urine RBC (Auto) 4 Ur Epithelial Cells Rare Hyaline Casts 1 CSF Appearance Clear CSF Color Colorless CSF WBC 1 CSF RBC 8 CSF Neutrophils No Result Required. CSF Lymphocytes No Result Required. CSF Eosinophils No Result Required. CSF Basophils No Result Required. CSF Macrophages No Result Required. CSF Plasma Cells No Result Required. CSF Diff Comment No Result Required. CSF Comment No Result Required. CSF Glucose No Result Required. 53 CSF Total Protein No Result Required. 50 H 04/30/18 05/01/18 05/01/18 21:51 06:00 06:00 WBC 10.8 H RBC 4.80 Hgb 11.4 Hct 36.0 MCV 75.1 L MCH 23.7 L MCHC 31.6 L RDW 18.5 H Plt Count 396 MPV 7.7 Absolute Neuts (auto) 9.7 H Neutrophils % 90.0 H Lymphocytes % 8.7 D Monocytes % 1.0 L D Eosinophils % 0.0 D Basophils % 0.3 Nucleated RBC % 0 PT with INR INR PTT (Actin FS) VBG pH POC VBG pCO2 POC VBG pO2 Mixed VBG HCO3 Sodium 138 Potassium 4.2 Chloride 105 Carbon Dioxide 26 Anion Gap 8 BUN 10 Creatinine 0.8 Creat Clearance w eGFR > 60 Random Glucose 168 H Lactic Acid Calcium 8.8 Total Bilirubin 0.4 AST 22 ALT 17 Alkaline Phosphatase 60 Troponin I Total Protein 7.5 Albumin 3.3 L Urine Color Urine Appearance Urine pH Ur Specific [place] Urine Protein Urine Glucose (UA) Urine Ketones Urine Blood Urine Nitrite Urine Bilirubin Urine Urobilinogen Ur Leukocyte Esterase Urine WBC (Auto) Urine RBC (Auto) Ur Epithelial Cells Hyaline Casts CSF Appearance Clear CSF Color Colorless CSF WBC 1 CSF RBC 1 CSF Neutrophils No Result Required. CSF Lymphocytes No Result Required. CSF Eosinophils No Result Required. CSF Basophils No Result Required. CSF Macrophages No Result Required. CSF Plasma Cells No Result Required. CSF Diff Comment No Result Required. CSF Comment No Result Required. CSF Glucose No Result Required. CSF Total Protein No Result Required. Microbiology 04/30/18 20:26 Blood - Peripheral Venous Blood Culture - Preliminary NO GROWTH OBTAINED AFTER 24 HOURS, INCUBATION TO CONTINUE FOR 4 DAYS. 05/01/18 17:45 Throat Group A Strep Rapid Antigen - Final 04/30/18 21:51 Cerebral Spinal Fluid - Lumbar Puncture Gram Stain - Preliminary 04/30/18 21:51 Cerebral Spinal Fluid - Lumbar Puncture CSF Culture - Preliminary 04/30/18 20:45 Nasopharyngeal Swab Influenza Types A,B Antigen - Final 04/30/18 20:45 Nasopharyngeal Swab - Final Active Medications Acetaminophen (Tylenol -) 650 mg PO Q4H PRN PRN Reason: PAIN Last Admin: 05/01/18 19:50 Dose: 650 mg Amlodipine Besylate (Norvasc -) 10 mg PO DAILY [facility] Last Admin: 05/01/18 13:51 Dose: 10 mg Enoxaparin Sodium (Lovenox -) 40 mg SQ DAILY [facility] Last Admin: 05/01/18 13:51 Dose: 40 mg Sodium Chloride (Normal Saline -) 1,000 mls @ 75 mls/hr IV ASDIR [facility] Last Admin: 05/01/18 11:06 Dose: 75 mls/hr Ceftriaxone Sodium 2 gm/ (Dextrose) 100 mls @ 100 mls/hr IVPB DAILY [facility]; Protocol Last Admin: 05/01/18 13:51 Dose: 100 mls/hr Valacyclovir HCl (Valtrex -) 1,000 mg PO BID [facility] IMAGING: -EKG: NORMAL SINUS RHYTHM, NORMAL ECG -CXR: No acute chest pathology -Head CT Without contrast: Mild volume loss without evidence of acute intracranial pathology. -CT C-Spine/T-Spine with contrast: Multilevel degenerative disc disease in the cervical and thoracic spine with mild disc bulge and faint posterior spur formation in the cervical spine at C5-C6 and C6-C7 level. No intraspinal mass or abnormal enhancement is seen within the cervical and thoracic spine down to L2 level. The craniocervical junction appears unremarkable. No paraspinal soft tissue mass, collection or abnormal enhancement are identified ASSESSMENT/PLAN: 67 y/o F w/ no significant pmhx presents to the ED w/ a 2 day history of neck pain of unclear etiology. 1. Neck Pain -Temp 101.2 + WBC 10.8 (Down from 11.8) suggestive of infectious cause in the setting of resolving sore throat and recent vesicular rash -CSF noted above not indicative of bacterial meningitis; Can still consider Viral meningitis, Also Muscle Strain -Tender to palpation at the C3-C4 region -ID (Dr. Mark) consulted, Appreciate Rec's, Empiric ceftriaxone and Valtrex -EBV, HSV, Lyme, Strep pneumo serologies pending -Blood/urine/CSF culture pending -Bacterial Men Ag pending -MRI C-Spine ordered to r/o Epidural abscess -Head CT and CT Cervical/Thoracic spine noted above -Tylenol 650mg PO Q4H for pain -Continue NS @ 75 mls/hr 2. Hypertensive Urgency -Started Norvasc today -Continue to monitor 3. FEN -NS @ 75 mls/hr -Lytes wnl -Sodium controlled diet 4. PPx -DVT: Lovenox dispo: admit to med-surg Visit type - Emergency Visit Emergency Visit: Yes ED Registration Date: 05/01/18 Care time: The patient presented to the Emergency Department on the above date and was hospitalized for further evaluation of their emergent condition. - New Patient This patient is new to me today: Yes Date on this admission: 05/01/18 - Critical Care Critical Care patient: No
[2018-05-01 20:57] VITALS: BMI 23.1
[2018-05-01] MEDS: valACYclovir HCL 500 MG TABLET (FP) PO SCH (22:22)
[2018-05-02] MEDS: ACETAMINOPHEN 325 MG TABLET (FP) PO PRN ×3 (01:07→19:37)
[2018-05-02] MEDS ORDERED: PT OWN MED DRAWER 7, Y5N ONE ×4 (05:38→21:19)
[2018-05-02 07:15] LABS: BASO % 0.4 % (0-2.0); EOS % 1.6 % (0-4.5); HEMATOCRIT 36.2 % (32.4-45.2); HEMOGLOBIN 11.4 GM/dL (10.7-15.3); LYMPH % 24.7 % (8-40); MCH 23.9 pg (25.7-33.7); MCHC 31.4 g/dl (32.0-36.0); MEAN CELL VOLUME 76.1 fl (80-96); MEAN PLT VOLUME 7.6 fl (7.5-11.1); MONO % 7.1 % (3.8-10.2); NEUT % 66.2 % (42.8-82.8); PLATELET COUNT 386 K/MM3 (134-434); RBC 4.75 M/mm3 (3.60-5.2); RDW 18.7 % (11.6-15.6); WHITE BLOOD COUNT 7.4 K/mm3 (4.0-10.0)
[2018-05-02 07:54] LABS: ALBUMIN 3.1 g/dl (3.4-5.0); ALK PHOS 51 U/L (45-117); ANION GAP 10 MMOL/L (8-16); BILIRUBIN,TOTAL 0.3 mg/dL (0.2-1); BLOOD UREA NITROGEN 14 mg/dL (7-18); CALCIUM 8.5 mg/dL (8.5-10.1); CHLORIDE 108 mmol/L (98-107); CO2 26 mmol/L (21-32); CREATININE 0.6 mg/dL (0.55-1.3); GLUCOSE,RANDOM 104 mg/dL (74-106); MAGNESIUM 2.4 mg/dL (1.8-2.4); PHOSPHOROUS 2.7 mg/dL (2.5-4.9); POTASSIUM 4.2 mmol/L (3.5-5.1); SGOT/AST 16 U/L (15-37); SGPT/ALT 18 U/L (13-61); SODIUM 144 mmol/L (136-145); TOT PROT 7.1 g/dl (6.4-8.2)
[2018-05-02] MEDS ORDERED: DEXTROSE 5%-WATER 100 ML IVPB ONE (09:33)
[2018-05-02] MEDS: amLODIPine BESYLATE 10 MG TABLET (FP) PO SCH (09:37)
[2018-05-02] MEDS: CEFTRIAXONE 2 GM in DEXTROSE 5%-WATER 100 ML IVPB SCH (09:39)
[2018-05-02] MEDS: SODIUM CHLORIDE 1,000 ML IV SCH (09:40)
[2018-05-02] MEDS: ENOXAPARIN NA (PORCINE) 40 MG/0.4 ML DISP.SYRIN SQ SCH (09:40)
[2018-05-02] MEDS: valACYclovir HCL 500 MG TABLET (FP) PO SCH ×2 (10:30→21:21)
[2018-05-02] MEDS ORDERED: ACETAMINOPHEN/CAFFEINE/BUTALBITAL 1 TAB PO PRN (11:22)
--- NOTE | 2018-05-02 13:42 | PN ---
Teaching Attending Note Name of Resident: Sylvia Vivar ATTENDING PHYSICIAN STATEMENT I saw and evaluated the patient. I reviewed the resident's note and discussed the case with the resident. I agree with the resident's findings and plan as documented. SUBJECTIVE: SCHULTZ today , different than her regular migraines. no N/V , no weakness, numbness or tingling. no SOB or ABD pain . cont to have neck pain OBJECTIVE: NAD. crusted lesions on upper and lower lips . neck stiffness. TTP over lower C spine CV: RRR Lungs: CATB Ext: no edema Neuro : EOMI, round equal pupils reactive to light , no facial droop, uvula and tongue at mid line , strength 5/5 in upper and lower extremities proximally and distally. sensation to light touch Nl. reflexes 2+ knee jerk and biceps b/l. ASSESSMENT AND PLAN: 67 y/o lady with h/o gastric bypass sx , and recurrent SCHULTZ who presented with severe neck pain and fever 1- Fever and neck pain. unclear etiology. CSF is not suggestive of bacterial meningitis. orolabial herpes lesions raises suspicion for HSV meningitis . No paraspinal or parapharyngeal collections on CT. tenderness over c spine - follow blood cx -follow MRI of neck to r/o discitis /epidural abscess - follow CSF HSV and cx. - clean UA and low colony count on U cx. low suspicion for UTI - on ceftriaxone empirically - More SCHULTZ today : post LP SCHULTZ , encourage caffeine intake, start fioricet and cont IVF 2- HTN urgency. cont norvasc. can adjust regimen if needed 3- Orolabial herpes: on po acyclovir DVT PX
--- NOTE | 2018-05-02 17:13 | PN ---
Progress Note, Physician History of Present Illness: Was sleeping when I entered room She reports neck pain better No photophobia or neck stiffness No c/o fever/ chills Afebrile WBC improved Cultures no growth - Current Medication List Current Medications: Active Medications Acetaminophen (Tylenol -) 650 mg PO Q4H PRN PRN Reason: PAIN Last Admin: 05/02/18 05:49 Dose: 650 mg Acetaminophen/Butalbital/Caffeine (Fioricet -) 1 tablet PO Q6H PRN PRN Reason: HEADACHE Amlodipine Besylate (Norvasc -) 10 mg PO DAILY [facility] Last Admin: 05/02/18 09:37 Dose: 10 mg Enoxaparin Sodium (Lovenox -) 40 mg SQ DAILY [facility] Last Admin: 05/02/18 09:40 Dose: 40 mg Sodium Chloride (Normal Saline -) 1,000 mls @ 75 mls/hr IV ASDIR [facility] Last Admin: 05/02/18 09:40 Dose: 75 mls/hr Ceftriaxone Sodium 2 gm/ (Dextrose) 100 mls @ 100 mls/hr IVPB DAILY [facility]; Protocol Last Admin: 05/02/18 09:39 Dose: 100 mls/hr Valacyclovir HCl (Valtrex -) 1,000 mg PO BID [facility] Last Admin: 05/02/18 10:30 Dose: 1,000 mg - Objective Vital Signs: Vital Signs Temperature 98.9 F 05/02/18 12:00 Pulse Rate 68 05/02/18 12:00 Respiratory Rate 20 05/02/18 12:00 Blood Pressure 160/88 05/02/18 12:00 O2 Sat by Pulse Oximetry (%) 96 05/02/18 04:00 Constitutional: Yes: No Distress Eyes: Yes: Conjunctiva Clear HENT: Yes: Other (orolabial HSV almost all resolved) Neck: Yes: Supple Cardiovascular: Yes: Regular Rate and Rhythm, S1, S2 Respiratory: Yes: CTA Bilaterally Gastrointestinal: Yes: Normal Bowel Sounds, Soft. No: Tenderness Labs: CBC, BMP 05/02/18 06:30 05/02/18 06:30 INR, PTT INR 1.14 (0.83-1.09) H 04/30/18 20:26 Assessment/Plan Neck pain- improved Fever/ leukocytosis- resolved Orolabial HSV- improved MRI C-spine ordered Continue ceftriaxone/ valtrex
--- NOTE | 2018-05-02 18:42 | PN ---
Physical Exam: SUBJECTIVE: Patient seen and examined this morning at bedside. Patient complained of headache over night that feels different from her usual migraine, and did not relieve with Tylenol. Denies any triggering or relieving factors. No accompanying nausea, vomiting, diarrhea, or visual changes. She also continues to have neck pain however it has improved from yesterday. OBJECTIVE: Vital Signs Period Temp Pulse Resp BP Sys/Marquez Pulse Ox Last 24 Hr 97.7 F-98.9 F 68-77 18-20 133-160/66-88 96-100 GENERAL: A&Ox3, NAD HEAD: NCAT EYES: PERRL, EOMI ENT: Oropharynx clear without exudates, MMM, Poor dentition, No tonsilar enlargement NECK: No JVD, No Lymphadenopathy, No Carotid Bruit. ROM significantly limited patient says due to stiffness and pain. Continues to have tenderness to palpation in the midline, c3-c4 region, however improved from prior exam. LUNGS: CTA bilaterally, no wheezes HEART: Regular rate and rhythm, S1, S2 without murmur ABDOMEN: Soft, nontender, nondistended, + bowel sounds, no guarding EXTREMITIES: 2+ pulses, no edema. NEUROLOGICAL: Cranial nerves II through XII grossly intact. Normal speech. C5- T1 and L4-S1 gross sensation intact throughout. 5/5 Muscle strength to handgrip , Elbow flexion/extension, Hip flexion/extension, dorsiflexion, platarflexion. SKIN: Warm, dry, Resolved vesicle over upper lip with minimal rash remaining, No other lesions noted Laboratory Results - last 24 hr 05/02/18 05/02/18 06:30 06:30 WBC 7.4 RBC 4.75 Hgb 11.4 Hct 36.2 MCV 76.1 L MCH 23.9 L MCHC 31.4 L RDW 18.7 H Plt Count 386 MPV 7.6 Absolute Neuts (auto) 4.9 Neutrophils % 66.2 D Lymphocytes % 24.7 D Monocytes % 7.1 D Eosinophils % 1.6 D Basophils % 0.4 Nucleated RBC % 0 Sodium 144 Potassium 4.2 Chloride 108 H Carbon Dioxide 26 Anion Gap 10 BUN 14 Creatinine 0.6 Creat Clearance w eGFR > 60 Random Glucose 104 Calcium 8.5 Phosphorus 2.7 Magnesium 2.4 Total Bilirubin 0.3 AST 16 ALT 18 Alkaline Phosphatase 51 Total Protein 7.1 Albumin 3.1 L Microbiology 10/02/18 21:51 Cerebral Spinal Fluid - Lumbar Puncture Streptococcus pneumoniae Antigen (M - Preliminary 04/30/18 21:51 Cerebral Spinal Fluid - Lumbar Puncture Gram Stain - Final 04/30/18 21:51 Cerebral Spinal Fluid - Lumbar Puncture CSF Culture - Preliminary 04/30/18 20:45 Urine - Urine Clean Catch Urine Culture - Final Lactobacillus Species 04/30/18 23:20 Blood - Peripheral Venous Blood Culture - Preliminary NO GROWTH OBTAINED AFTER 24 HOURS, INCUBATION TO CONTINUE FOR 4 DAYS. 04/30/18 20:26 Blood - Peripheral Venous Blood Culture - Preliminary NO GROWTH OBTAINED AFTER 24 HOURS, INCUBATION TO CONTINUE FOR 4 DAYS. 05/01/18 17:45 Throat Group A Strep Rapid Antigen - Final 04/30/18 20:45 Nasopharyngeal Swab Influenza Types A,B Antigen - Final 04/30/18 20:45 Nasopharyngeal Swab - Final Active Medications Acetaminophen (Tylenol -) 650 mg PO Q4H PRN PRN Reason: PAIN Last Admin: 05/02/18 05:49 Dose: 650 mg Acetaminophen/Butalbital/Caffeine (Fioricet -) 1 tablet PO Q6H PRN PRN Reason: HEADACHE Amlodipine Besylate (Norvasc -) 10 mg PO DAILY [facility] Last Admin: 05/02/18 09:37 Dose: 10 mg Enoxaparin Sodium (Lovenox -) 40 mg SQ DAILY [facility] Last Admin: 05/02/18 09:40 Dose: 40 mg Sodium Chloride (Normal Saline -) 1,000 mls @ 75 mls/hr IV ASDIR [facility] Last Admin: 05/02/18 09:40 Dose: 75 mls/hr Ceftriaxone Sodium 2 gm/ (Dextrose) 100 mls @ 100 mls/hr IVPB DAILY [facility]; Protocol Last Admin: 05/02/18 09:39 Dose: 100 mls/hr Valacyclovir HCl (Valtrex -) 1,000 mg PO BID [facility] Last Admin: 05/02/18 10:30 Dose: 1,000 mg IMAGING: -EKG: NORMAL SINUS RHYTHM, NORMAL ECG -CXR: No acute chest pathology -Head CT Without contrast: Mild volume loss without evidence of acute intracranial pathology. -CT C-Spine/T-Spine with contrast: Multilevel degenerative disc disease in the cervical and thoracic spine with mild disc bulge and faint posterior spur formation in the cervical spine at C5-C6 and C6-C7 level. No intraspinal mass or abnormal enhancement is seen within the cervical and thoracic spine down to L2 level. The craniocervical junction appears unremarkable. No paraspinal soft tissue mass, collection or abnormal enhancement are identified ASSESSMENT/PLAN: 67 y/o F w/ no significant pmhx presents to the ED w/ a 2 day history of neck pain of unclear etiology. 1. Neck Pain -Afebrile overnight, Leukocytosis has resolved -CSF analysis not indicative of bacterial meningitis; Can still consider Viral meningitis, Also Muscle Strain -Tender to palpation at the C3-C4 region -ID (Dr. Mark) consulted, Appreciate Rec's, Empiric ceftriaxone and Valtrex -EBV, HSV, Lyme, Strep pneumo serologies pending -Blood/urine/CSF culture pending -Bacterial Men Ag pending -MRI C-Spine ordered to r/o Epidural abscess -Head CT and CT Cervical/Thoracic spine noted above -Tylenol 650mg PO Q4H for pain -Continue NS @ 75 mls/hr -Continue ceftriaxone and Valtrex 2. Headache -Possibly a Post-LP headache -Started Fioricet Q6H PRN -Encourage to consume caffeine 3. Hypertensive Urgency -Improved -Continue Norvasc -Continue to monitor 4. FEN -NS @ 75 mls/hr -Lytes wnl -Sodium controlled diet 5. PPx -DVT: Lovenox dispo: admit to med-surg Visit type - Emergency Visit Emergency Visit: Yes ED Registration Date: 05/01/18 Care time: The patient presented to the Emergency Department on the above date and was hospitalized for further evaluation of their emergent condition. - New Patient This patient is new to me today: No - Critical Care Critical Care patient: No
[2018-05-03] MEDS ORDERED: DEXTROSE 5%-WATER 100 ML IVPB ONE (10:44)
[2018-05-03] MEDS: ENOXAPARIN NA (PORCINE) 40 MG/0.4 ML DISP.SYRIN SQ SCH (10:48)
[2018-05-03] MEDS: CEFTRIAXONE 2 GM in DEXTROSE 5%-WATER 100 ML IVPB SCH (10:48)
[2018-05-03] MEDS: amLODIPine BESYLATE 10 MG TABLET (FP) PO SCH (10:48)
[2018-05-03] MEDS: valACYclovir HCL 500 MG TABLET (FP) PO SCH ×2 (10:48→21:45)
[2018-05-03] MEDS: SODIUM CHLORIDE 1,000 ML IV SCH (10:49)
--- NOTE | 2018-05-03 11:56 | PN ---
Progress Note, Physician History of Present Illness: She reports neck pain resolved No photophobia or neck stiffness No c/o fever/ chills Afebrile WBC improved Cultures no growth MRI pending - Current Medication List Current Medications: Active Medications Acetaminophen (Tylenol -) 650 mg PO Q4H PRN PRN Reason: PAIN Last Admin: 05/02/18 19:37 Dose: 650 mg Acetaminophen/Butalbital/Caffeine (Fioricet -) 1 tablet PO Q6H PRN PRN Reason: HEADACHE Last Admin: 05/03/18 00:29 Dose: 1 tablet Amlodipine Besylate (Norvasc -) 10 mg PO DAILY [facility] Last Admin: 05/03/18 10:48 Dose: 10 mg Enoxaparin Sodium (Lovenox -) 40 mg SQ DAILY [facility] Last Admin: 05/03/18 10:48 Dose: 40 mg Sodium Chloride (Normal Saline -) 1,000 mls @ 75 mls/hr IV ASDIR [facility] Last Admin: 05/03/18 10:49 Dose: 75 mls/hr Ceftriaxone Sodium 2 gm/ (Dextrose) 100 mls @ 100 mls/hr IVPB DAILY [facility]; Protocol Last Admin: 05/03/18 10:48 Dose: 100 mls/hr Valacyclovir HCl (Valtrex -) 1,000 mg PO BID [facility] Last Admin: 05/03/18 10:48 Dose: 1,000 mg - Objective Vital Signs: Vital Signs Temperature 98.3 F 05/03/18 08:57 Pulse Rate 66 05/03/18 08:57 Respiratory Rate 20 05/03/18 08:57 Blood Pressure 158/93 05/03/18 08:57 O2 Sat by Pulse Oximetry (%) 96 05/02/18 21:00 Constitutional: Yes: No Distress Eyes: Yes: Conjunctiva Clear HENT: Yes: Other (resolving orolabial HSV) Cardiovascular: Yes: Regular Rate and Rhythm, S1, S2 Respiratory: Yes: CTA Bilaterally Gastrointestinal: Yes: Normal Bowel Sounds, Soft. No: Tenderness Edema: No Labs: CBC, BMP 05/02/18 06:30 05/02/18 06:30 INR, PTT INR 1.14 (0.83-1.09) H 04/30/18 20:26 Assessment/Plan Neck pain- improved Fever/ leukocytosis- resolved Orolabial HSV- improved MRI C-spine ordered If stable D/C home on po valtrex Please reconsult as needed
--- NOTE | 2018-05-03 18:58 | PN ---
Teaching Attending Note Name of Resident: Sylvia Vivar ATTENDING PHYSICIAN STATEMENT I saw and evaluated the patient. I reviewed the resident's note and discussed the case with the resident. I agree with the resident's findings and plan as documented. SUBJECTIVE: No fever or chills. SCHULTZ has resolved . neck pain is still there but better OBJECTIVE: NAD. crusted lesions on upper and lower lips . neck stiffness. TTP over lower C spine CV: RRR Lungs: CATB Ext: no edema Neuro : EOMI, round equal pupils reactive to light , no facial droop, uvula and tongue at mid line , strength 5/5 in upper and lower extremities proximally and distally. sensation to light touch Nl. reflexes 2+ knee jerk and biceps b/l. ASSESSMENT AND PLAN: 67 y/o lady with h/o gastric bypass sx , and recurrent SCHULTZ who presented with severe neck pain and fever 1- Fever and neck pain. unclear etiology.CSF cx neg - blood cx neg to date - follow MRI of neck to r/o discitis /epidural abscess - follow CSF HSV - on ceftriaxone per ID 2- HTN urgency. cont norvasc. can adjust regimen if needed 3- Orolabial herpes: on po acyclovir
--- NOTE | 2018-05-03 19:06 | PN ---
Physical Exam: SUBJECTIVE: Patient seen and examined this morning at bedside. Had a 10/10 headache yesterday that felt like pounding over the midline of her skull. Her headache subsided with Fioricet x1 overnight. No preceeding Photophobia, visual disturbances, flashing lights, or associated hearing changes. Continues to have neck pain. Tolerated dinner, 1 BM since yesterday. Denies Dysphagia. Denies fevers, chills, chest pain, SOB, nausea, vomiting. OBJECTIVE: Vital Signs Period Temp Pulse Resp BP Sys/Marquez Pulse Ox Last 24 Hr 98 F-98.4 F 66-71 20-20 128-158/72-93 96 GENERAL: A&Ox3, NAD HEAD: NCAT EYES: PERRL, EOMI ENT: Oropharynx clear without exudates, MMM, Poor dentition, No tonsilar enlargement NECK: No JVD, No Lymphadenopathy, No Carotid Bruit. ROM improved. Continues to have tenderness to palpation in the midline, c5-c6 region described as a pinch, improved from prior exam. Additionally has tenderness to palpation over the left trapezius muscle. LUNGS: CTA bilaterally, no wheezes HEART: Regular rate and rhythm, S1, S2 without murmur ABDOMEN: Soft, nontender, nondistended, + bowel sounds, no guarding EXTREMITIES: 2+ pulses, no edema. NEUROLOGICAL: Cranial nerves II through XII grossly intact. Normal speech. C5- T1 and L4-S1 gross sensation intact throughout. 5/5 Muscle strength to handgrip , Elbow flexion/extension, Hip flexion/extension, dorsiflexion, platarflexion. SKIN: Warm, dry, Resolved vesicle over upper lip with minimal rash remaining, No other lesions noted Microbiology 05/01/18 17:45 Throat Throat Culture - Final NO BETA HEMOLYTIC STREPTOCOCCI ISOLATED 05/01/18 17:45 Throat Group A Strep Rapid Antigen - Final 04/30/18 21:51 Cerebral Spinal Fluid - Lumbar Puncture Gram Stain - Final 04/30/18 21:51 Cerebral Spinal Fluid - Lumbar Puncture CSF Culture - Final 04/30/18 23:20 Blood - Peripheral Venous Blood Culture - Preliminary NO GROWTH OBTAINED AFTER 48 HOURS, INCUBATION TO CONTINUE FOR 3 DAYS. 04/30/18 20:26 Blood - Peripheral Venous Blood Culture - Preliminary NO GROWTH OBTAINED AFTER 48 HOURS, INCUBATION TO CONTINUE FOR 3 DAYS. 04/30/18 21:51 Cerebral Spinal Fluid - Lumbar Puncture Streptococcus pneumoniae Antigen (M - Preliminary 04/30/18 20:45 Urine - Urine Clean Catch Urine Culture - Final Lactobacillus Species 04/30/18 20:45 Nasopharyngeal Swab Influenza Types A,B Antigen - Final 04/30/18 20:45 Nasopharyngeal Swab - Final Active Medications Acetaminophen (Tylenol -) 650 mg PO Q4H PRN PRN Reason: PAIN Last Admin: 05/02/18 19:37 Dose: 650 mg Acetaminophen/Butalbital/Caffeine (Fioricet -) 1 tablet PO Q6H PRN PRN Reason: HEADACHE Last Admin: 05/03/18 00:29 Dose: 1 tablet Amlodipine Besylate (Norvasc -) 10 mg PO DAILY [facility] Last Admin: 05/03/18 10:48 Dose: 10 mg Enoxaparin Sodium (Lovenox -) 40 mg SQ DAILY [facility] Last Admin: 05/03/18 10:48 Dose: 40 mg Sodium Chloride (Normal Saline -) 1,000 mls @ 75 mls/hr IV ASDIR [facility] Last Admin: 05/03/18 10:49 Dose: 75 mls/hr Ceftriaxone Sodium 2 gm/ (Dextrose) 100 mls @ 100 mls/hr IVPB DAILY [facility]; Protocol Last Admin: 05/03/18 10:48 Dose: 100 mls/hr Valacyclovir HCl (Valtrex -) 1,000 mg PO BID [facility] Last Admin: 05/03/18 10:48 Dose: 1,000 mg IMAGING: -EKG: NORMAL SINUS RHYTHM, NORMAL ECG -CXR: No acute chest pathology -Head CT Without contrast: Mild volume loss without evidence of acute intracranial pathology. -CT C-Spine/T-Spine with contrast: Multilevel degenerative disc disease in the cervical and thoracic spine with mild disc bulge and faint posterior spur formation in the cervical spine at C5-C6 and C6-C7 level. No intraspinal mass or abnormal enhancement is seen within the cervical and thoracic spine down to L2 level. The craniocervical junction appears unremarkable. No paraspinal soft tissue mass, collection or abnormal enhancement are identified ASSESSMENT/PLAN: 67 y/o F w/ no significant pmhx presents to the ED w/ a 2 day history of neck pain of unclear etiology. 1. Neck Pain -Afebrile overnight, Leukocytosis has resolved -CSF analysis not indicative of bacterial meningitis; Can still consider Viral meningitis, Also Muscle Strain -Tender to palpation at the C3-C4 region -ID (Dr. Mark) consulted, Appreciate Rec's, If stable D/C home on po valtrex -EBV, HSV, Lyme, Strep pneumo serologies pending -Blood/urine/CSF culture noted above -Bacterial Men Ag pending -MRI C-Spine to r/o Epidural abscess pending official read -Head CT and CT Cervical/Thoracic spine noted above -Tylenol 650mg PO Q4H for pain -Continue NS @ 75 mls/hr -Continue ceftriaxone and Valtrex 2. Headache -Possibly a Post-LP headache, improved -Started Fioricet Q6H PRN -Encourage to consume caffeine 3. Hypertensive Urgency -Improved -Continue Norvasc -Continue to monitor 4. FEN -NS @ 75 mls/hr -Lytes wnl -Sodium controlled diet 5. PPx -DVT: Lovenox dispo: admit to med-surg Visit type - Emergency Visit Emergency Visit: Yes ED Registration Date: 05/01/18 Care time: The patient presented to the Emergency Department on the above date and was hospitalized for further evaluation of their emergent condition. - New Patient This patient is new to me today: Yes Date on this admission: 05/03/18 - Critical Care Critical Care patient: No - Discharge Referral Referred to [facility] Med P.C.: No
[2018-05-03] MEDS: ACETAMINOPHEN 325 MG TABLET (FP) PO PRN (23:11)
[2018-05-04] MEDS ORDERED: DEXTROSE 5%-WATER 100 ML IVPB ONE (09:34)
[2018-05-04] MEDS ORDERED: PT OWN MED DRAWER 7, Y5N ONE (09:34)
[2018-05-04] MEDS: amLODIPine BESYLATE 10 MG TABLET (FP) PO SCH (09:43)
[2018-05-04] MEDS: ENOXAPARIN NA (PORCINE) 40 MG/0.4 ML DISP.SYRIN SQ SCH (09:43)
[2018-05-04] MEDS: CEFTRIAXONE 2 GM in DEXTROSE 5%-WATER 100 ML IVPB SCH (09:43)
[2018-05-04] MEDS: valACYclovir HCL 500 MG TABLET (FP) PO SCH (09:44)
[2018-05-04] MEDS: SODIUM CHLORIDE 1,000 ML IV SCH (12:02)
--- NOTE | 2018-05-04 12:52 | PN ---
Teaching Attending Note Name of Resident: Sylvia Vivar ATTENDING PHYSICIAN STATEMENT I saw and evaluated the patient. I reviewed the resident's note and discussed the case with the resident. I agree with the resident's findings and plan as documented. SUBJECTIVE: cont to have SCHULTZ. no weakness, numbness. neck pain is better . no photophobia OBJECTIVE: NAD. crusted lesions on upper and lower lips . neck stiffness. TTP over lower C spine CV: RRR Lungs: CATB Ext: no edema Neuro : EOMI, round equal pupils reactive to light , no facial droop, uvula and tongue at mid line , strength 5/5 in upper and lower extremities proximally and distally. sensation to light touch Nl. reflexes 2+ knee jerk and biceps b/l. ASSESSMENT AND PLAN: 67 y/o lady with h/o gastric bypass sx , and recurrent SCHULTZ who presented with severe neck pain and fever 1- Fever : unclear cause of fever . resolved. CSF cx and CSF JCV neg MRI with no epidural abscess d/w ID , dc abx and antiviral 2- neck pain , MRI with bulging disks and nerve root impingement . No epidural abscess or diskitis 3- POST LP SCHULTZ. improved . cont with fioricet for her chronic SCHULTZ's she will need MRI as out pt . refer to neuro 4- HTN. cont norvasc 5- Orolabial herpes. resolved . dc va;cyclovir DC home today
[2018-05-04 13:54] VITALS: BP 137/77; PULSE 76; TEMP 98.4
--- NOTE | 2018-05-04 14:01 | PN ---
Progress Note (short form) - Note Progress Note: still some headaches Vital Signs Period Temp Pulse Resp BP Sys/Marquez Pulse Ox Last 24 Hr 97.8 F-98.5 F 74-79 18-20 137-150/77-82 96-97 no blisters noted on lips cor-rrr lungs clear abd soft,nt ext no edema CBC, BMP 05/02/18 06:30 05/02/18 06:30 Microbiology 04/30/18 23:20 Blood - Peripheral Venous Blood Culture - Preliminary NO GROWTH OBTAINED AFTER 72 HOURS, INCUBATION TO CONTINUE FOR 2 DAYS. 04/30/18 20:26 Blood - Peripheral Venous Blood Culture - Preliminary NO GROWTH OBTAINED AFTER 72 HOURS, INCUBATION TO CONTINUE FOR 2 DAYS. 05/01/18 17:45 Throat Throat Culture - Final NO BETA HEMOLYTIC STREPTOCOCCI ISOLATED 05/01/18 17:45 Throat Group A Strep Rapid Antigen - Final 04/30/18 21:51 Cerebral Spinal Fluid - Lumbar Puncture Gram Stain - Final 04/30/18 21:51 Cerebral Spinal Fluid - Lumbar Puncture CSF Culture - Final 04/30/18 21:51 Cerebral Spinal Fluid - Lumbar Puncture Streptococcus pneumoniae Antigen (M - Preliminary 04/30/18 20:45 Urine - Urine Clean Catch Urine Culture - Final Lactobacillus Species 04/30/18 20:45 Nasopharyngeal Swab Influenza Types A,B Antigen - Final 04/30/18 20:45 Nasopharyngeal Swab - Final Current Medications Acetaminophen (Tylenol -) 650 mg PO Q4H PRN PRN Reason: PAIN Last Admin: 05/03/18 23:11 Dose: 650 mg Acetaminophen/Butalbital/Caffeine (Fioricet -) 1 tablet PO Q6H PRN PRN Reason: HEADACHE Last Admin: 05/03/18 00:29 Dose: 1 tablet Amlodipine Besylate (Norvasc -) 10 mg PO DAILY [facility] Last Admin: 05/04/18 09:43 Dose: 10 mg Enoxaparin Sodium (Lovenox -) 40 mg SQ DAILY [facility] Last Admin: 05/04/18 09:43 Dose: 40 mg Sodium Chloride (Normal Saline -) 1,000 mls @ 75 mls/hr IV [facility]IR [facility] Last Admin: 05/04/18 12:02 Dose: 75 mls/hr Ceftriaxone Sodium 2 gm/ (Dextrose) 100 mls @ 100 mls/hr IVPB DAILY [facility]; Protocol Last Admin: 05/04/18 09:43 Dose: 100 mls/hr Valacyclovir HCl (Valtrex -) 1,000 mg PO BID [facility] Last Admin: 05/04/18 09:44 Dose: 1,000 mg a/p cultures negative can d/c ceftriaxone orolabial hsv resolved, can d/c valtrex consider neurology f/u as outpt for headaches
[2018-05-04] MEDS ORDERED: ACETAMINOPHEN/CAFFEINE/BUTALBITAL 1 TAB PO ONE (14:27)
--- NOTE | 2018-05-04 15:07 | DS ---
Physical Exam: SUBJECTIVE: Patient seen and examined this morning at bedside. She continues to have headaches but her neck pain has improved. No associated Photophobia, visual disturbances, flashing lights, associated hearing changes, numbness, tingling or weakness. Able to tolerate diet. OBJECTIVE: Vital Signs Period Temp Pulse Resp BP Sys/Marquez Pulse Ox Last 24 Hr 97.8 F-98.5 F 74-79 18-20 137-150/77-82 96-97 PHYSICAL EXAM GENERAL: A&Ox3, NAD HEAD: NCAT EYES: PERRL, EOMI ENT: Oropharynx clear without exudates, MMM, Poor dentition, No tonsilar enlargement NECK: No JVD, No Lymphadenopathy, No Carotid Bruit. ROM improved. Minimal tenderness to palpation in the midline c5-c6 region, Tenderness to palpation over the left trapezius muscle has resolved. LUNGS: CTA bilaterally, no wheezes HEART: Regular rate and rhythm, S1, S2 without murmur ABDOMEN: Soft, nontender, nondistended, + bowel sounds, no guarding EXTREMITIES: 2+ pulses, no edema. NEUROLOGICAL: Cranial nerves II through XII grossly intact. Normal speech. C5- T1 and L4-S1 gross sensation intact throughout. 5/5 Muscle strength to handgrip , Elbow flexion/extension, Hip flexion/extension, dorsiflexion, platarflexion. SKIN: Warm, dry, Resolved vesicle over upper lip with minimal rash remaining, No other lesions noted LABS Laboratory Results - last 24 hr 04/30/18 21:51 HSV I DNA Quant (PCR) Negative HSV II DNA Quant (PCR) Negative Microbiology 04/30/18 23:20 Blood - Peripheral Venous Blood Culture - Preliminary NO GROWTH OBTAINED AFTER 72 HOURS, INCUBATION TO CONTINUE FOR 2 DAYS. 04/30/18 20:26 Blood - Peripheral Venous Blood Culture - Preliminary NO GROWTH OBTAINED AFTER 72 HOURS, INCUBATION TO CONTINUE FOR 2 DAYS. 05/01/18 17:45 Throat Throat Culture - Final NO BETA HEMOLYTIC STREPTOCOCCI ISOLATED 05/01/18 17:45 Throat Group A Strep Rapid Antigen - Final 04/30/18 21:51 Cerebral Spinal Fluid - Lumbar Puncture Gram Stain - Final 04/30/18 21:51 Cerebral Spinal Fluid - Lumbar Puncture CSF Culture - Final 04/30/18 21:51 Cerebral Spinal Fluid - Lumbar Puncture Streptococcus pneumoniae Antigen (M - Preliminary 04/30/18 20:45 Urine - Urine Clean Catch Urine Culture - Final Lactobacillus Species 04/30/18 20:45 Nasopharyngeal Swab Influenza Types A,B Antigen - Final 04/30/18 20:45 Nasopharyngeal Swab - Final IMAGING: -EKG: NORMAL SINUS RHYTHM, NORMAL ECG -CXR: No acute chest pathology -Head CT Without contrast: Mild volume loss without evidence of acute intracranial pathology. -CT C-Spine/T-Spine with contrast: Multilevel degenerative disc disease in the cervical and thoracic spine with mild disc bulge and faint posterior spur formation in the cervical spine at C5-C6 and C6-C7 level. No intraspinal mass or abnormal enhancement is seen within the cervical and thoracic spine down to L2 level. The craniocervical junction appears unremarkable. No paraspinal soft tissue mass, collection or abnormal enhancement are identified -MRI C-spine: Straightening of the cervical spine. Degenerative disc disease at C5-C6 and C6-C7 level, as described above. C5-C6 mild disc bulge mainly right lateral and mild bilateral uncovertebral hypertrophy impinging right C6 nerve root and slightly narrowing the left foramen. C6-C7 mild broad-based disc bulge and minimal bilateral uncovertebral hypertrophy slightly to moderately narrowing the right neuroforamen and slightly narrowing the left without gross nerve root impingement. No abnormal intraspinal, intervertebral disc spaces or paraspinal enhancement is identified HOSPITAL COURSE: Date of Admission:05/01/18 Date of Discharge: 05/04/18 67 y/o F with no significant PMHx presented to the ED with neck pain accompanied by fever and leukocytosis with a recent history of resolving sore throat and vesicular rash. A Lumbar puncture was done and the results were not suggestive of bacterial meningitis. Blood, urine, CSF and throat cultures were done (noted above). MRI C-Spine revealed Degenerative disc disease at C5-C6 and C6-C7 level, a mild disc bulge at C5-C6 and C6-C7 level. ID was consulted and the patient completed a 4 day course of Ceftriaxone and Valtrex. Patients neck pain and ROM continued to improve. Patient experienced headaches, post-LP, that improved with Fioricet. Her blood pressure was 192/88 on admission. She was started on Norvasc 10mg and her BP was controlled. Patient remained afebrile during her stay, her leukocytosis resolved and her rash continued to improve. Patient was discharged home with strict instructions to follow up with Neurology and her PCP. Minutes to complete discharge: 50 Discharge Summary Reason For Visit: NECK PAIN Current Active Problems Fever (Acute) Headache (Acute) Hypertension (Acute) Neck pain (Acute) Condition: Stable - Instructions Diet, Activity, Other Instructions: You presented to the ED with neck pain. A Lumbar puncture was done and the culture was negative. Your head CT Scan was negative. We did not identify any source of infection The MRI of your neck revealed Degenerative disc disease at C5-C6 and C6-C7 level. CT scan of your cervical and thoracic Spine revealed a mild disc bulge at C5-C6 and C6-C7 level. Please avoid excessive bending or aggressive turning as this can further increase the disc bulge. You had a headache after the Lumbar puncture that improved. You are being discharged with Fioricet, Please use 1 tablet as needed every 6 hours. Please continue to consume caffeine as this can help reduce the pain, and stay hydrated. You need to follow with Dr. Goldman ( neurologist ) for the need of MRI of the brain ( for your chronic Headaches) . it is important you follow with him During your stay, your blood pressure became very high. Please take these medications as prescribed. You were started on Norvasc 10mg daily. It is very important you monitor your blood pressure daily, as elevated blood pressure places you at risk for complications like stroke. Please follow up with your primary care physician in one week. If you do not have one, you can follow up at the [facility] with Dr. Vivar on Sunday at 2pm. Continue all your other medications as prescribed. Please return to the ER if you have any signs or symptoms of chest pain, shortness of breath, uncontrollable fever, chills, nausea, vomiting, numbness, tingling, or weakness in any part of your body, changes in vision, or slurred speech. Please return to the ER if symptoms persist, worsen, or new symptoms arise. Referrals: Mitch Reid MD [Staff Physician] - 1 Week (Dr. Vivar on Sunday at 2pm. ) Rock Goldman DO [Staff Physician] - 1 Week Oliver Dumont [Other] - 1 Week Disposition: HOME - Home Medications Comprehensive Discharge Medication List: Ambulatory Orders Amlodipine Besylate [Norvasc -] 10 mg PO DAILY #30 tablet 05/03/18 Acetaminophen/Caffeine/Butalb [Fioricet -] 1 tab PO Q6H PRN #16 tablet MDD 4 tab in 24 hr 05/04/18 This patient is new to me today: No Emergency Visit: No Critical Care patient: No - Discharge Referral Referred to [facility] Med P.C.: No
== END 2018-05-04 16:45 | disposition home or self-care (01) | DRG 552 ==
LOC: JER 18:56 → JERBED 05-01 00:42 → UNDOADMOB 05-01 01:30 → OBSVTOIN 05-01 04:19 → J6S 05-01 19:36
PROVIDERS: ADMIT Internal Medicine; ATTEND Internal Medicine
DX: M50.322 Other cervical disc degeneration at C5-C6 level (principal); B00.89 Other herpesviral infection; B00.1 Herpesviral vesicular dermatitis; D72.829 Elevated white blood cell count, unspecified; R50.9 Fever, unspecified; M50.323 Other cervical disc degeneration at C6-C7 level; I16.0 Hypertensive urgency; R51 Headache
CPT/HCPCS: 36415; 70450-TC; 71045-TC-FY; 72126-TC; 72129-TC; 72142-TC; 80053; 81003; 81015; 82803; 82945; 83605; 83735; 84100; 84157; 84484; 85025; 85610; 85730; 86663; 86664; 86665; 87040; 87070; 87086; 87205; 87430; 87476; 87529; 87802; 87804; 87899; 93005; 93010; 99285-25; G0378; J0131; J7030

== ENCOUNTER 2022-12-19 21:01 | Day surgery (SDC) | payer OTHER ==
[2022-12-19] MEDS ORDERED: ACETAMINOPHEN 1000 MG/100 ML BAG IVPB ONE (21:24)
[2022-12-19] MEDS ORDERED: LACTATED RINGERS SOLUTION 1000 ML INFUS.BAG IV ONE (21:24)
[2022-12-19] MEDS ORDERED: ACETAMINOPHEN INJECTION 100 ML IVPB ONE (21:31)
[2022-12-19 21:53] LABS: BASO % 0.5 % (0-2.0); EOS % 0.8 % (0-4.5); HEMATOCRIT 38.1 % (32.4-45.2); HEMOGLOBIN 13.4 GM/dL (10.7-15.3); LYMPH % 14.5 % (8-40); MCH 33.2 pg (25.7-33.7); MEAN CELL VOLUME 94.9 fl (80-96); MEAN PLT VOLUME 7.7 fl (7.5-11.1); NEUT % 77.2 % (42.8-82.8); PLATELET COUNT 287 10^3/uL (134-434); RBC 4.02 M/mm3 (3.60-5.2); RDW 14.3 % (11.6-15.6); WHITE BLOOD COUNT 10.6 K/mm3 (4.0-10.0)
[2022-12-19 22:10] LABS: POTASSIUM 4.6 mmol/L (3.5-5.1)
[2022-12-19 22:13] LABS: ALBUMIN 3.6 g/dl (3.4-5.0); BLOOD UREA NITROGEN 13.8 mg/dL (7-18); CALCIUM 9.1 mg/dL (8.5-10.1)
[2022-12-19 22:15] LABS: CREATININE 0.7 mg/dL (0.55-1.3)
[2022-12-19 22:17] LABS: BILIRUBIN,TOTAL 0.4 mg/dL (0.2-1); TOT PROT 6.9 g/dl (6.4-8.2)
[2022-12-20] MEDS ORDERED: ceFAZolin SODIUM 1 GM VIAL IVPB ONE
[2022-12-20] MEDS ORDERED: BUPIVACAINE HCL/PF 0.25% (2.5MG/ML) 10 ML VIAL IM ONE
[2022-12-20] MEDS ORDERED: PIPERACILLIN/TAZOB 4.5 GM 4.5 GM in DEXTROSE 5%-WATER 100 ML IVPB ONE (00:39)
[2022-12-20] MEDS ORDERED: PIPERACILLIN/TAZOB 4.5 GM 4.5 GM/100 ML BAG IVPB ONE (01:30)
[2022-12-20 02:07] LABS: INR 1.08 (0.83-1.09); PROTHROMBIN TIME (PATIENT) 12.5 SEC (9.7-13.0)
[2022-12-20 02:10] LABS: ACTIVATED PTT 28.7 SECONDS (25.2-36.5)
[2022-12-20] MEDS ORDERED: ACETAMINOPHEN 1000 MG/100 ML BAG IVPB PRN (02:59)
[2022-12-20 05:30] VITALS: BMI 23.9
[2022-12-20] MEDS ORDERED: PIPERACILLIN/TAZOB 3.375 GM 3.375 GM in DEXTROSE 5%-WATER - 50 ML IVPB SCH ×2 (08:00→09:00)
[2022-12-20 08:12] LABS: BASO % 0.5 % (0-2.0); LYMPH % 13.8 % (8-40); MCH 32.9 pg (25.7-33.7); MCHC 35.1 g/dl (32.0-36.0); MEAN CELL VOLUME 93.8 fl (80-96); MEAN PLT VOLUME 7.6 fl (7.5-11.1); NEUT % 75.7 % (42.8-82.8); PLATELET COUNT 266 10^3/uL (134-434); RBC 3.94 M/mm3 (3.60-5.2); RDW 13.9 % (11.6-15.6); WHITE BLOOD COUNT 10.3 K/mm3 (4.0-10.0)
[2022-12-20 08:30] LABS: POTASSIUM 3.8 mmol/L (3.5-5.1)
[2022-12-20 08:31] LABS: ALBUMIN 3.2 g/dl (3.4-5.0); BLOOD UREA NITROGEN 11.2 mg/dL (7-18); CALCIUM 8.9 mg/dL (8.5-10.1); MAGNESIUM 2.2 mg/dL (1.8-2.4)
[2022-12-20 08:34] LABS: CREATININE 0.7 mg/dL (0.55-1.3); PHOSPHOROUS 3.3 mg/dL (2.5-4.9)
[2022-12-20 08:36] LABS: BILIRUBIN,TOTAL 0.6 mg/dL (0.2-1); TOT PROT 6.3 g/dl (6.4-8.2)
[2022-12-20] MEDS ORDERED: CEFTRIAXONE 1 GM in DEXTROSE 5%-WATER - 50 ML IVPB ONE (09:00)
[2022-12-20] MEDS ORDERED: BUPIVACAINE HCL/PF 0.5% (5MG/ML) 10 ML VIAL ONE (12:35)
[2022-12-20] MEDS ORDERED: MIDAZOLAM HCL 2 MG/2 ML SINGLE DOSE VIAL ONE (12:53)
[2022-12-20] MEDS ORDERED: ROCURONIUM BROMIDE 50 MG/5 ML SYRINGE ONE (12:53)
[2022-12-20] MEDS ORDERED: PROPOFOL 40 ML ONE (12:53)
[2022-12-20] MEDS ORDERED: NEOSTIGMINE METHYLSULFATE 0.5 MG/1 ML - 10 ML MDV ONE (13:18)
[2022-12-20] MEDS ORDERED: BUPIVACAINE HCL/PF 0.5% (5MG/ML) 10 ML VIAL IJ ONE ×3 (13:33)
[2022-12-20] MEDS ORDERED: DOCUSATE SODIUM 100 MG CAPSULE (FP) PO PRN (14:39)
[2022-12-20] MEDS ORDERED: oxyCODONE HCL 5 MG TABLET PO PRN (14:39)
[2022-12-20] MEDS ORDERED: KETOROLAC TROMETHAMINE 30 MG/1 ML VIAL IM SCH (14:45)
[2022-12-20] MEDS ORDERED: LACTATED RINGERS SOLUTION 1,000 ML IV SCH (14:45)
[2022-12-20] MEDS: ACETAMINOPHEN 1000 MG/100 ML BAG IVPB SCH ×2 (16:29→22:04)
[2022-12-20] MEDS ORDERED: ONDANSETRON 4 MG/2 ML VIAL IVPUSH PRN (16:44)
[2022-12-20] MEDS: KETOROLAC TROMETHAMINE 30 MG/1 ML VIAL IVPUSH SCH ×2 (16:45→23:04)
[2022-12-20 21:48] VITALS: RESP 18
[2022-12-21] MEDS: ACETAMINOPHEN 1000 MG/100 ML BAG IVPB SCH ×2 (02:46→08:44)
[2022-12-21] MEDS: KETOROLAC TROMETHAMINE 30 MG/1 ML VIAL IVPUSH SCH (03:49)
[2022-12-21 08:06] LABS: POTASSIUM 4.2 mmol/L (3.5-5.1)
[2022-12-21 08:14] LABS: BASO % 0.3 % (0-2.0); EOS % 0.3 % (0-4.5); HEMATOCRIT 37.3 % (32.4-45.2); HEMOGLOBIN 12.8 GM/dL (10.7-15.3); LYMPH % 17.8 % (8-40); MCH 32.7 pg (25.7-33.7); MCHC 34.3 g/dl (32.0-36.0); MEAN CELL VOLUME 95.4 fl (80-96); MEAN PLT VOLUME 8.2 fl (7.5-11.1); MONO % 7.3 % (3.8-10.2); NEUT % 74.3 % (42.8-82.8); PLATELET COUNT 273 10^3/uL (134-434); RBC 3.91 M/mm3 (3.60-5.2); RDW 13.9 % (11.6-15.6); WHITE BLOOD COUNT 8.2 K/mm3 (4.0-10.0)
[2022-12-21 08:26] LABS: ALBUMIN 2.9 g/dl (3.4-5.0); BLOOD UREA NITROGEN 14.4 mg/dL (7-18); CREATININE 0.8 mg/dL (0.55-1.3)
[2022-12-21 08:28] LABS: BILIRUBIN,TOTAL 0.4 mg/dL (0.2-1); TOT PROT 6.1 g/dl (6.4-8.2)
[2022-12-21 08:29] LABS: CALCIUM 9.2 mg/dL (8.5-10.1)
[2022-12-21 08:49] VITALS: BP 135/64; PULSE 73; TEMP 97.4
[2022-12-21] MEDS ORDERED: LISINOPRIL 20 MG TABLET PO SCH ×2 (10:00)
[2022-12-21] MEDS ORDERED: ACETAMINOPHEN 500 MG TABLET (FP) PO PRN (14:41)
== END 2022-12-21 12:35 | disposition home or self-care (01) ==
LOC: JER 21:01 → UNDOADMOB 12-20 01:51 → INTOOBSV 12-20 01:51 → JERBED 12-20 01:51 → UNDOADMOB 12-20 02:36 → JASUSAT 12-20 02:36 → J6S 12-20 05:01 → JERBED 12-20 05:01 → JASUSAT 12-21 12:35
PROVIDERS: ATTEND Internal Medicine
PROC: 0DTJ4ZZ Resection of Appendix, Percutaneous Endoscopic Approach (ICD-10-PCS; principal; 2022-12-20 12:30)
DX: K35.80 Unspecified acute appendicitis (principal)
CPT/HCPCS: 0241U-QW; 36415; 71046-TC-FY; 74176-TC; 76705-TC; 80053; 83690; 83735; 84100; 84484; 85025; 85610; 85730; 86850; 86900; 86901; 88304-TC; 93005; 93010; 94760; 99285-25

== ENCOUNTER 2022-12-22 14:59 | Observation (INO) | payer OTHER ==
[2022-12-22 15:48] VITALS: BMI 23.9
[2022-12-22] MEDS ORDERED: SODIUM CHLORIDE 0.9% 500 ML INFUS.BAG IV ONE (16:20)
[2022-12-22] MEDS ORDERED: ACETAMINOPHEN 1000 MG/100 ML BAG IVPB ONE (16:20)
[2022-12-22] MEDS ORDERED: ACETAMINOPHEN INJECTION 100 ML IVPB ONE (16:37)
[2022-12-22 18:37] LABS: BASO % 0.3 % (0-2.0); EOS % 0.3 % (0-4.5); HEMATOCRIT 37.2 % (32.4-45.2); HEMOGLOBIN 12.5 GM/dL (10.7-15.3); LYMPH % 10.3 % (8-40); MCH 31.9 pg (25.7-33.7); MCHC 33.7 g/dl (32.0-36.0); MEAN CELL VOLUME 94.5 fl (80-96); MEAN PLT VOLUME 7.3 fl (7.5-11.1); MONO % 7.7 % (3.8-10.2); NEUT % 81.4 % (42.8-82.8); PLATELET COUNT 292 10^3/uL (134-434); RBC 3.93 M/mm3 (3.60-5.2); RDW 14.1 % (11.6-15.6); WHITE BLOOD COUNT 9.5 K/mm3 (4.0-10.0)
[2022-12-22 19:00] LABS: POTASSIUM 3.6 mmol/L (3.5-5.1)
[2022-12-22 19:02] LABS: CALCIUM 8.8 mg/dL (8.5-10.1)
[2022-12-22 19:06] LABS: CREATININE 0.7 mg/dL (0.55-1.3)
[2022-12-22 19:07] LABS: BILIRUBIN,TOTAL 0.4 mg/dL (0.2-1)
[2022-12-22 19:08] LABS: TOT PROT 6.3 g/dl (6.4-8.2)
[2022-12-23 00:10] LABS: BASO % 0.3 % (0-2.0); EOS % 0.7 % (0-4.5); HEMATOCRIT 39.4 % (32.4-45.2); HEMOGLOBIN 13.3 GM/dL (10.7-15.3); LYMPH % 20.9 % (8-40); MCH 31.8 pg (25.7-33.7); MCHC 33.7 g/dl (32.0-36.0); MEAN CELL VOLUME 94.5 fl (80-96); MEAN PLT VOLUME 7.5 fl (7.5-11.1); MONO % 7.6 % (3.8-10.2); NEUT % 70.5 % (42.8-82.8); PLATELET COUNT 349 10^3/uL (134-434); RBC 4.17 M/mm3 (3.60-5.2); RDW 13.8 % (11.6-15.6); WHITE BLOOD COUNT 8.3 K/mm3 (4.0-10.0)
[2022-12-23 00:13] LABS: EPI CELLS 9 /uL (0-25.1); HYALINE CASTS 0 /uL (0-3.1); PH,URINE 5.5 (5.0-8.0); URINE APPEARANCE CLEAR; URINE BACTERIA 17 /uL (0-1359); URINE BILIRUBIN NEGATIVE (NEGATIVE); URINE COLOR YELLOW; URINE GLUCOSE (UA) NEGATIVE (NEGATIVE); URINE KETONE NEGATIVE (NEGATIVE); URINE LEUK ESTERASE 1+ (NEGATIVE); URINE NITRITE NEGATIVE (NEGATIVE); URINE PROTEIN NEGATIVE (NEGATIVE); URINE RBC 228 /uL (0-23.9); URINE UROBILINOGEN 0.2 mg/dL (0.2-1.0); URINE WBC 38 /uL (0-25.8)
[2022-12-23 09:25] LABS: BASO % 0.4 % (0-2.0); EOS % 0.7 % (0-4.5); HEMATOCRIT 36.8 % (32.4-45.2); HEMOGLOBIN 12.8 GM/dL (10.7-15.3); LYMPH % 18.3 % (8-40); MCH 32.6 pg (25.7-33.7); MCHC 34.7 g/dl (32.0-36.0); MEAN CELL VOLUME 93.9 fl (80-96); MEAN PLT VOLUME 7.6 fl (7.5-11.1); MONO % 8.3 % (3.8-10.2); NEUT % 72.3 % (42.8-82.8); PLATELET COUNT 304 10^3/uL (134-434); RBC 3.92 M/mm3 (3.60-5.2); WHITE BLOOD COUNT 8.3 K/mm3 (4.0-10.0)
[2022-12-23 09:27] LABS: INR 1.12 (0.83-1.09)
[2022-12-23 09:30] LABS: ACTIVATED PTT 26.7 SECONDS (25.2-36.5)
[2022-12-23 09:51] LABS: POTASSIUM 3.7 mmol/L (3.5-5.1)
[2022-12-23] MEDS ORDERED: SODIUM CHLORIDE 1,000 ML IV SCH (10:00)
[2022-12-23] MEDS: LISINOPRIL 20 MG TABLET PO SCH (10:07)
[2022-12-23 10:16] LABS: BLOOD UREA NITROGEN 10.9 mg/dL (7-18)
[2022-12-23 10:18] LABS: CALCIUM 8.8 mg/dL (8.5-10.1)
[2022-12-23 10:19] LABS: PHOSPHOROUS 3.7 mg/dL (2.5-4.9)
[2022-12-23 10:20] LABS: CREATININE 0.7 mg/dL (0.55-1.3)
[2022-12-23] MEDS: ACETAMINOPHEN 1000 MG/100 ML BAG IVPB PRN ×2 (14:46→23:55)
[2022-12-23] MEDS ORDERED: LACTATED RINGERS SOLUTION 1,000 ML/1,000 ML INFUS.BAG IV SCH (15:30)
[2022-12-23] MEDS: DEXTROSE 5%-LACTATED RINGERS 1,000 ML IV SCH (19:17)
[2022-12-24] MEDS ORDERED: ACETAMINOPHEN 325 MG TABLET (FP) PO PRN
[2022-12-24] MEDS: DEXTROSE 5%-LACTATED RINGERS 1,000 ML IV SCH (05:34)
[2022-12-24] MEDS ORDERED: ACETAMINOPHEN 1000 MG/100 ML BAG IVPB ONE (08:32)
[2022-12-24] MEDS: LISINOPRIL 20 MG TABLET PO SCH (09:03)
[2022-12-24 10:00] LABS: BASO % 0.5 % (0-2.0); EOS % 2.4 % (0-4.5); HEMATOCRIT 36.1 % (32.4-45.2); HEMOGLOBIN 12.2 GM/dL (10.7-15.3); LYMPH % 22.4 % (8-40); MCH 32.1 pg (25.7-33.7); MCHC 33.9 g/dl (32.0-36.0); MEAN CELL VOLUME 94.6 fl (80-96); MEAN PLT VOLUME 7.6 fl (7.5-11.1); MONO % 6.2 % (3.8-10.2); NEUT % 68.5 % (42.8-82.8); PLATELET COUNT 286 10^3/uL (134-434); RBC 3.81 M/mm3 (3.60-5.2); RDW 13.7 % (11.6-15.6); WHITE BLOOD COUNT 7.1 K/mm3 (4.0-10.0)
[2022-12-24 10:13] LABS: POTASSIUM 3.6 mmol/L (3.5-5.1)
[2022-12-24 10:18] LABS: CALCIUM 8.4 mg/dL (8.5-10.1)
[2022-12-24 10:19] LABS: ALBUMIN 2.6 g/dl (3.4-5.0); BLOOD UREA NITROGEN 5.4 mg/dL (7-18)
[2022-12-24 10:22] LABS: CREATININE 0.6 mg/dL (0.55-1.3)
[2022-12-24 10:23] LABS: BILIRUBIN,TOTAL 0.5 mg/dL (0.2-1); TOT PROT 5.4 g/dl (6.4-8.2)
[2022-12-24] MEDS ORDERED: cefTRIAXone SODIUM 1 GM VIAL ONE (10:53)
[2022-12-24] MEDS: CEFTRIAXONE 1 GM in DEXTROSE 5%-WATER - 50 ML IVPB SCH (10:55)
[2022-12-24] MEDS: LACTATED RINGERS SOLUTION 1,000 ML/1,000 ML INFUS.BAG IV SCH (12:48)
[2022-12-24 15:58] LABS: HEMOGLOBIN 12.4 GM/dL (10.7-15.3); MCH 31.8 pg (25.7-33.7); MCHC 33.6 g/dl (32.0-36.0); MEAN CELL VOLUME 94.7 fl (80-96); MEAN PLT VOLUME 7.4 fl (7.5-11.1); PLATELET COUNT 301 10^3/uL (134-434); RBC 3.91 M/mm3 (3.60-5.2); RDW 14.2 % (11.6-15.6); WHITE BLOOD COUNT 7.1 K/mm3 (4.0-10.0)
[2022-12-25 04:54] VITALS: RESP 18
[2022-12-25] MEDS: LACTATED RINGERS SOLUTION 1,000 ML/1,000 ML INFUS.BAG IV SCH ×2 (04:56→17:26)
[2022-12-25 07:41] LABS: HEMATOCRIT 32.1 % (32.4-45.2); HEMOGLOBIN 11.4 GM/dL (10.7-15.3); MCH 33.6 pg (25.7-33.7); MCHC 35.6 g/dl (32.0-36.0); MEAN CELL VOLUME 94.3 fl (80-96); MEAN PLT VOLUME 7.3 fl (7.5-11.1); PLATELET COUNT 279 10^3/uL (134-434); RDW 13.8 % (11.6-15.6); WHITE BLOOD COUNT 6.6 K/mm3 (4.0-10.0)
[2022-12-25 07:52] LABS: POTASSIUM 3.4 mmol/L (3.5-5.1)
[2022-12-25 07:58] LABS: CALCIUM 8.3 mg/dL (8.5-10.1)
[2022-12-25 07:59] LABS: BLOOD UREA NITROGEN 6.5 mg/dL (7-18)
[2022-12-25 08:02] LABS: CREATININE 0.6 mg/dL (0.55-1.3)
[2022-12-25] MEDS: LISINOPRIL 20 MG TABLET PO SCH (09:17)
[2022-12-25] MEDS: CEFTRIAXONE 1 GM in DEXTROSE 5%-WATER - 50 ML IVPB SCH (09:17)
[2022-12-25 20:41] LABS: HEMATOCRIT 32.7 % (32.4-45.2); HEMOGLOBIN 11.1 GM/dL (10.7-15.3); MCH 32.1 pg (25.7-33.7); MCHC 33.8 g/dl (32.0-36.0); MEAN CELL VOLUME 94.9 fl (80-96); PLATELET COUNT 281 10^3/uL (134-434); RBC 3.45 M/mm3 (3.60-5.2)
[2022-12-26 09:12] LABS: BASO % 0.4 % (0-2.0); EOS % 2.7 % (0-4.5); HEMATOCRIT 35.2 % (32.4-45.2); HEMOGLOBIN 12.2 GM/dL (10.7-15.3); LYMPH % 24.8 % (8-40); MCH 32.4 pg (25.7-33.7); MCHC 34.7 g/dl (32.0-36.0); MEAN CELL VOLUME 93.3 fl (80-96); MEAN PLT VOLUME 7.4 fl (7.5-11.1); MONO % 5.9 % (3.8-10.2); NEUT % 66.2 % (42.8-82.8); PLATELET COUNT 328 10^3/uL (134-434); RBC 3.77 M/mm3 (3.60-5.2); RDW 13.9 % (11.6-15.6); WHITE BLOOD COUNT 6.2 K/mm3 (4.0-10.0)
[2022-12-26 09:15] LABS: POTASSIUM 3.7 mmol/L (3.5-5.1)
[2022-12-26 09:20] LABS: BLOOD UREA NITROGEN 8.1 mg/dL (7-18); CALCIUM 8.8 mg/dL (8.5-10.1)
[2022-12-26 09:24] LABS: CREATININE 0.7 mg/dL (0.55-1.3)
[2022-12-26 09:35] VITALS: BP 135/78; PULSE 74; TEMP 98.2
[2022-12-26] MEDS: LISINOPRIL 20 MG TABLET PO SCH (10:18)
[2022-12-26] MEDS: CEFTRIAXONE 1 GM in DEXTROSE 5%-WATER - 50 ML IVPB SCH (10:18)
== END 2022-12-26 14:15 | disposition home or self-care (01) ==
LOC: JER 14:59 → JERBED 23:05 → J6S 12-23 03:10
PROVIDERS: ADMIT Internal Medicine; ATTEND Internal Medicine
PROC: 3E033NZ Introduction of Analgesics, Hypnotics, Sedatives into Peripheral Vein, Percutaneous Approach (ICD-10-PCS; principal; 2022-12-22)
PROC: 3E03329 Introduction of Other Anti-infective into Peripheral Vein, Percutaneous Approach (ICD-10-PCS; 2022-12-22)
PROC: 3E0337Z Introduction of Electrolytic and Water Balance Substance into Peripheral Vein, Percutaneous Approach (ICD-10-PCS; 2022-12-22)
DX: K52.9 Noninfective gastroenteritis and colitis, unspecified (principal); K92.1 Melena; Z90.49 Acquired absence of other specified parts of digestive tract; R10.9 Unspecified abdominal pain; I10 Essential (primary) hypertension; Z98.84 Bariatric surgery status; Z98.890 Other specified postprocedural states; Z88.2 Allergy status to sulfonamides
CPT/HCPCS: 0241U-QW; 36415; 74177-TC; 80048; 80053; 81003; 83690; 83735; 84100; 85025; 85027; 85610; 85730; 87045; 87046; 87086; 87324; 87449; 93005; 93010; 96361; 96365; 96367; 96375; 96376; 99285-25; G0378; Q9967

== ENCOUNTER 2023-07-19 03:01 | Emergency (ER) | payer OTHER ==
[2023-07-19 03:16] VITALS: RESP 18; TEMP 98.4; BMI 25.0
[2023-07-19] MEDS ORDERED: METOCLOPRAMIDE HCL INJECTION 10 MG/2 ML VIAL IVPB ONE (03:39)
[2023-07-19 04:02] LABS: BASO % 1.1 % (0-2.0); EOS % 4.8 % (0-4.5); HEMATOCRIT 41.7 % (32.4-45.2); HEMOGLOBIN 14.1 GM/dL (10.7-15.3); LYMPH % 34.7 % (8-40); MCH 31.9 pg (25.7-33.7); MCHC 33.8 g/dl (32.0-36.0); MEAN CELL VOLUME 94.6 fl (80-96); MEAN PLT VOLUME 7.4 fl (7.5-11.1); MONO % 8.2 % (3.8-10.2); NEUT % 51.2 % (42.8-82.8); PLATELET COUNT 270 10^3/uL (134-434); RBC 4.41 M/mm3 (3.60-5.2); RDW 13.8 % (11.6-15.6); WHITE BLOOD COUNT 3.7 K/mm3 (4.0-10.0)
[2023-07-19] MEDS ORDERED: METOCLOPRAMIDE HCL INJECTION 10 MG/2 ML VIAL ONE (04:03)
[2023-07-19 04:08] LABS: INR 1.04 (0.83-1.09); PROTHROMBIN TIME (PATIENT) 12.1 SEC (9.7-13.0)
[2023-07-19 04:10] LABS: ACTIVATED PTT 26.2 SECONDS (25.2-36.5)
[2023-07-19 04:24] LABS: POTASSIUM 3.6 mmol/L (3.5-5.1)
[2023-07-19 04:26] LABS: BLOOD UREA NITROGEN 14.7 mg/dL (7-18); CALCIUM 8.7 mg/dL (8.5-10.1)
[2023-07-19 04:27] LABS: ALBUMIN 3.4 g/dl (3.4-5.0)
[2023-07-19 04:29] LABS: EPI CELLS 8 /uL (0-25.1); HYALINE CASTS 1 /uL (0-3.1); PH,URINE 5.5 (5.0-8.0); URINE APPEARANCE CLEAR; URINE BACTERIA 18 /uL (0-1359); URINE BILIRUBIN NEGATIVE (NEGATIVE); URINE COLOR YELLOW; URINE GLUCOSE (UA) NEGATIVE (NEGATIVE); URINE KETONE NEGATIVE (NEGATIVE); URINE LEUK ESTERASE 1+ (NEGATIVE); URINE NITRITE NEGATIVE (NEGATIVE); URINE PROTEIN NEGATIVE (NEGATIVE); URINE RBC 29 /uL (0-23.9); URINE UROBILINOGEN 0.2 mg/dL (0.2-1.0); URINE WBC 18 /uL (0-25.8)
[2023-07-19 04:30] LABS: CREATININE 0.7 mg/dL (0.55-1.3)
[2023-07-19 04:31] LABS: BILIRUBIN,TOTAL 0.2 mg/dL (0.2-1)
[2023-07-19 05:45] LABS: TOT PROT 6.3 g/dl (6.4-8.2)
[2023-07-19 05:52] VITALS: BP 162/82; PULSE 71
== END 2023-07-19 06:02 | disposition home or self-care (01) ==
LOC: JER 03:01
PROC: 3E033NZ Introduction of Analgesics, Hypnotics, Sedatives into Peripheral Vein, Percutaneous Approach (ICD-10-PCS; principal; 2023-07-19)
DX: I10 Essential (primary) hypertension (principal); R51.9 Headache, unspecified; Z20.822 Contact with and (suspected) exposure to COVID-19
CPT/HCPCS: 0241U-QW; 36415; 70450-TC; 80053; 81003; 84484; 85025; 85610; 85730; 87086; 93005; 93010; 99285-25

== ENCOUNTER 2023-09-22 16:12 | Emergency (ER) | payer OTHER ==
[2023-09-22 16:54] VITALS: TEMP 98.1; BMI 26.5
[2023-09-22 17:24] VITALS: RESP 20
[2023-09-22 18:04] LABS: BASO % 0.6 % (0-2.0); EOS % 0.2 % (0-4.5); HEMATOCRIT 40.7 % (32.4-45.2); HEMOGLOBIN 13.9 GM/dL (10.7-15.3); LYMPH % 8.8 % (8-40); MCH 32.3 pg (25.7-33.7); MCHC 34.2 g/dl (32.0-36.0); MEAN CELL VOLUME 94.7 fl (80-96); MEAN PLT VOLUME 7.6 fl (7.5-11.1); MONO % 4.1 % (3.8-10.2); NEUT % 86.3 % (42.8-82.8); PLATELET COUNT 290 10^3/uL (134-434); RDW 13.5 % (11.6-15.6); WHITE BLOOD COUNT 9.7 K/mm3 (4.0-10.0)
[2023-09-22 18:11] LABS: POTASSIUM 4.7 mmol/L (3.5-5.1)
[2023-09-22 18:13] LABS: ALBUMIN 4.2 g/dl (3.4-5.0); BLOOD UREA NITROGEN 22.1 mg/dL (7-18); CALCIUM 9.8 mg/dL (8.5-10.1); MAGNESIUM 2.1 mg/dL (1.8-2.4)
[2023-09-22 18:15] LABS: CREATININE 0.9 mg/dL (0.55-1.3)
[2023-09-22 18:17] LABS: BILIRUBIN,TOTAL 0.6 mg/dL (0.2-1); TOT PROT 7.7 g/dl (6.4-8.2)
[2023-09-22 18:50] VITALS: BP 130/63; PULSE 89
== END 2023-09-22 18:50 | disposition home or self-care (01) ==
LOC: JER 16:12
DX: I10 Essential (primary) hypertension (principal); R20.2 Paresthesia of skin; R20.0 Anesthesia of skin
CPT/HCPCS: 36415; 71045-TC-FY; 80053; 82962; 83735; 85025; 93005; 93010; 99285-25